=== PATIENT | female | born 1965 | race Caucasian/White ===

== ENCOUNTER 2020-06-19 11:28 | Outpatient (REF) | payer OTHER, SELFPAY ==
[2020-06-19 14:11] LABS: Glucose Urine UA NEG (NEG); Leukocyte Esterase Urine NEG (NEG); Nitrite Urine NEG (NEG); Urine Blood 1+ (NEG); Urine Ketones NEG (NEG); Urine Protein NEG (NEG-TRACE)
[2020-06-19 14:15] LABS: Appearance Urine CLEAR; Color Urine YELLOW
[2020-06-19 14:26] LABS: WBC Urine 0 /HPF (0-4)
== END 2020-06-19 11:29 | disposition home or self-care (01) ==
LOC: HO.WFDLDS 11:28
PROVIDERS: PCP Internal Medicine; Visit Provider Obstetrics & Gynecology Gynecology
DX: R31.29 Other microscopic hematuria (principal)
CPT/HCPCS: 81001; 87086

== ENCOUNTER 2022-02-10 08:01 | Outpatient (REF) | payer OTHER, SELFPAY ==
[2022-02-10 11:19] LABS: MANUAL DIFF FLAG NO
[2022-02-10 11:31] LABS: Basophils Percent Auto 0.3 % (0-2); Eosinophils Absolute Auto 0.1 X10*3/uL (0.0-0.4); Eosinophils Percent Auto 2.1 % (0-4); Hematocrit 39.4 % (37.0-47.0); Hemoglobin 12.9 g/dl (12.0-16.0); Imm Gran Abs Auto 0.02 X10*3/uL (0.00-0.03); Imm Gran Pct Auto 0.3 % (0.0-0.4); Lymphocytes Absolute Auto 1.7 X10*3/uL (1.2-4.9); Lymphocytes Percent Auto 27.4 % (20-40); Mean Corpuscular HGB Conc 32.7 g/dl (31.0-35.0); Mean Corpuscular Hemoglobin 32.7 pg (27.0-33.0); Mean Corpuscular Volume 99.7 fL (80.0-98.0); Mean Platelet Volume 13.7 fL (9.4-12.3); Monocytes Absolute Auto 0.4 X10*3/uL (0.1-1.2); Monocytes Percent Auto 6.4 % (2-11); Neutrophils Absolute Auto 3.8 x10*3/uL (2.0-8.3); Neutrophils Percent Auto 63.5 % (45-73); Platelet Count 219 X10*3/uL (160-400); Red Blood Count 3.95 X10*6/uL (4.20-5.50); Red Cell Distribution Width 12.2 % (11.0-16.0); White Blood Count 6.1 X10*3/uL (4.8-10.8)
[2022-02-10 11:58] LABS: Alanine Aminotransferase 15 U/L (0-31); Albumin Level 4.6 g/dL (3.5-5.0); Alkaline Phosphatase 82 U/L (39-117); Anion Gap 18 (12-20); Aspartate Amino Transferase 16 U/L (5-31); Bilirubin Total 0.7 mg/dL (0.0-1.0); Blood Urea Nitrogen 18 mg/dL (9-16); Carbon Dioxide 24 mmol/L (22-29); Chloride 107 mmol/L (96-108); Cholesterol 258 mg/dL; Estimated Glomerular Filt Rate 58; Glucose Fasting 101 mg/dL (60-99); HDL Cholesterol 73 mg/dL; LDL Cholesterol Calculated 169 mg/dl; Potassium 5.6 mmol/L (3.3-5.1); Sodium 143 mmol/L (135-145); Total Protein 7.4 g/dL (6.5-8.0); Triglycerides 84 mg/dL
[2022-02-10 12:19] LABS: TSH reflex Free T4 2.03 uIU/mL (0.32-4.0); Vitamin D 25-OH Total 66.9 ng/mL (>30)
== END 2022-02-10 08:02 | disposition home or self-care (01) ==
LOC: HO.HMGCLDS 08:01
PROVIDERS: PCP Internal Medicine; Visit Provider Internal Medicine
DX: Z00.00 Encounter for general adult medical examination without abnormal findings (principal); E78.5 Hyperlipidemia, unspecified; E03.9 Hypothyroidism, unspecified
CPT/HCPCS: 36415; 80053; 80061; 82306; 84443; 85025

== ENCOUNTER 2022-02-12 10:21 | Outpatient (REF) | payer OTHER, SELFPAY ==
[2022-02-12 15:32] LABS: Anion Gap 20 (12-20); Blood Urea Nitrogen 15 mg/dL (9-16); Calcium 10.2 mg/dL (8.4-10.2); Carbon Dioxide 24 mmol/L (22-29); Chloride 109 mmol/L (96-108); Estimated Glomerular Filt Rate 54; Glucose Random 107 mg/dL (60-115); Potassium 6.5 mmol/L (3.3-5.1); Sodium 146 mmol/L (135-145)
== END 2022-02-12 10:22 | disposition home or self-care (01) ==
LOC: HO.HMGCLDS 10:21
PROVIDERS: PCP Internal Medicine; Visit Provider Internal Medicine
DX: E78.5 Hyperlipidemia, unspecified (principal)
CPT/HCPCS: 36415; 80048

== ENCOUNTER 2023-02-13 10:20 | Outpatient (AMB) | payer OTHER, SELFPAY ==
[2023-02-13 10:23] VITALS: BP 106/72; PULSE 92; O2SAT 99; BMI 30.3
--- NOTE | 2023-02-13 10:23 | MHC.PC.OV ---
Vital Signs 02/13/23 10:23 Height 4 ft 8 in Weight 135 lb BMI 30.3 BP 106/72 Blood Pressure Location Rt brachial Position Sitting Pulse 92 Pulse Source Pulse Oximeter Pulse Oximetry (%) 99 Oxygen Delivery Method Room Air Intake Visit Reasons: annual PE Intake Note: Pt is here today for PE. Allergies nitrofurantoin Allergy (Unknown, Verified 02/13/23 10:25) hives Medication List - Last Reconciled 02/13/23 by Trisha Dumont MD [bio-identical hormones Estrogen, Progesterone, Testosterone, DHEA cream] cholecalciferol (vitamin D3) 125 mcg PO DAILY levothyroxine 50 mcg PO DAILY linaclotide (Linzess) 200 mcg PO DAILY magnesium PO [osteoselect 4 capsules daily] sodium polystyrene sulf-sorbtl 15-20 gram/60 mL 60 mL PO DAILY vitamin B complex 1 cap PO DAILY vitamin K2 160 mcg PO DAILY Tobacco use date assessed: 02/13/23 Dental Screening Dental Screen Date: 02/13/23 Did you have a dental visit in the last 12 months?: Yes Did you have a dental problem in the last 6 months where you did not have access to dental care?: No Was dental information given to patient?: Patient has dentist HPI annual PE HPI Details Pt presents for PE. Pt had L knee ACL surgery by Dr. Mckoy in October and recovered well. [facility] Medical History (Updated 02/13/23 @ 11:04 by Trisha Dumont MD) MANI positive Annual physical exam Hyperlipidemia Hypothyroid IBS (irritable bowel syndrome) Microscopic hematuria Vertigo Surgical History (Updated 02/13/23 @ 11:04 by Trisha Dumont MD) H/O colonoscopy Family History Father Diabetes Mother Lung cancer Social History Housing: House Alcohol intake: current Alcohol intake frequency: holidays/special occasions only Patient Tobacco Use Status: Never used Tobacco Current occupational status: employed Cognitive needs: No Hearing needs: No Vision needs: Yes Questionnaire PHQ-9 Over the last 2 weeks, how often have you been bothered by any of the following problems? 1. Little interest or pleasure in doing things: not at all 2. Feeling down, depressed, or hopeless: not at all 3. Trouble falling or staying asleep, or sleeping too much: not at all 4. Feeling tired or having little energy: not at all 5. Poor appetite or overeating: not at all 6. Feeling bad about yourself - or that you are a failure or have let yourself or your family down: not at all 7. Trouble concentrating on things, such as reading the newspaper or watching television: not at all 8. Moving or speaking so slowly that other people could have noticed. Or the opposite - being so fidgety or restless that you have been moving around a lot more than usual: not at all 9. Thoughts that you would be better off or of hurting yourself in some way: not at all Total score: 0 Depression Screening Interpretation: Negative Source: Developed by Drs. Sha Barrera, Gracie Quarles, Marcus Kang and colleagues, with an educational carola from [employer]. Thrive Questionnaire Date Thrive assessed: 02/13/23 I am a: Patient What is your living situation today?: I have a steady place to live Within the past 12 months, did the food you bought not last and you didn't have the money to get more?: Never true Within the past 12 months, did you worry whether your food would run out before you got money to buy more?: Never true Do you have trouble paying for medicines?: No Do you have trouble getting transportation to medical appointments?: No Do you have trouble paying your heating and electricity bill?: No Do you have trouble taking care of your child, family member or friend?: No Do you have trouble with day-to-day activities such as bathing, preparing meals, shopping, managing finances, etc.?: No Are you currently unemployed and looking for a job?: No Are you interested in more education?: No Please select the resources that you would like help with: None Currently or been in a relationship where the following occur: no concerns reported AUDIT C Alcohol Use Questionnaire (AUDIT-C) 1. How often do you have a drink containing alcohol?: Never 3. How often do you have six or more drinks on one occasion?: Never Total Score: 0 WALLACE-7 AMB Questionnaire WALLACE-7 Date WALLACE - 7 assessed: 02/13/23 Feeling nervous, anxious, or on edge: 0 = Not at all Not being able to stop or control worryin = Not at all Worrying too much about different things: 0 = Not at all Trouble relaxin = Not at all Being so restless that it is hard to sit still: 0 = Not at all Becoming easily annoyed or irritable: 0 = Not at all Feeling afraid as if something awful might happen: 0 = Not at all Total WALLACE-7 score (0-4 normal; 5-9 mild; 10-14 moderate; 15-21 severe): 0 Source: Developed by Drs. Sha Barrera, Gracie Quarles, Marcus Kang and colleagues, with an educational carola from [employer]. Review of Systems Const All systems reviewed & are unremarkable except as noted in HPI and below Reports no additional complaints Eyes Reports no additional complaints ENT Reports no additional complaints Card Reports no additional complaints Resp Reports no additional complaints GI Reports no additional complaints Reports no additional complaints Physical exam (Primary Care) Vital Signs: Last Vital Signs Pulse 92 02/13/23 10:23 BP 106/72 02/13/23 10:23 Pulse Ox 99 02/13/23 10:23 Oxygen Delivery Method Room Air 02/13/23 10:23 BMI result Body Mass Index 30.3 Tobacco/Smoking Status: Tobacco use Status Tobacco use date assessed 02/13/23 02/13/23 10:34 Patient Tobacco Use Status Never used Tobacco 02/13/23 10:34 PHQ-9: PHQ-9 Score PHQ-9: Total score 0 02/13/23 10:44 Depression Screening Interpretation: Negative Thrive Assessment: Date of Thrive Assessment Date Thrive assessed 02/13/23 02/13/23 10:44 Currently or been in a relationship where the following occur: no concerns reported Const General: no acute distress HENMT Head: Yes normal to inspection Ears: hearing grossly normal bilaterally General nose exam: Normal external nose present Face and sinus: Yes normal facial exam Mouth: Normal oral and palatal mucosa present Throat: Yes posterior oropharynx normal Eyes General: appearance normal, both eyes and all related structures Neck Neck: Yes supple Resp Effort & Inspection: normal respiratory effort Auscultation: clear to auscultation bilaterally Cardio Rhythm: regular rhythm Heart sounds: S1 normal heart sound present and S2 normal heart sound present GI Inspection: Yes normal to inspection Palpation (GI): Soft to palpation Percussion: Yes normal to percussion Auscultation: normal bowel sounds Assessment and Plan Assessment & Plan (1) H/O colonoscopy: Comment: 2016 , Dr. Talbert, q 3yrs, 10/2021, q 5 years Code(s): Z98.890 - Other specified postprocedural states (2) Osteoporosis: Comment: DEXA 07/13 BY TOOL POLISHING MACHINE OPERATOR, started on bioidentical hormones by interative medicine [facility] 07/13 Code(s): M81.0 - Age-related osteoporosis without current pathological fracture (3) Annual physical exam: Code(s): Z00.00 - Encounter for general adult medical examination without abnormal findings Plan: Well-balanced diet regular physical activity discussed with the patient (4) Hyperlipidemia: Comment: refused statin not feeling well on it Code(s): E78.5 - Hyperlipidemia, unspecified Plan: Continue low-cholesterol diet (5) Hypothyroid: Code(s): E03.9 - Hypothyroidism, unspecified Plan: Continue levothyroxine, return in 1 year with a fasting labs before Orders: Orders Comprehensive [place]. Panel Fast 365 Days E03.9 - Hypothyroidism, unspecified, E78.5 - Hyperlipidemia, unspecified, Z00.00 - Encounter for general adult medical examination without abnormal findings Lipid Panel 365 Days E03.9 - Hypothyroidism, unspecified, E78.5 - Hyperlipidemia, unspecified, Z00.00 - Encounter for general adult medical examination without abnormal findings TSH reflex Free T4 365 Days E03.9 - Hypothyroidism, unspecified, E78.5 - Hyperlipidemia, unspecified, Z00.00 - Encounter for general adult medical examination without abnormal findings Vitamin D 25-OH Total 365 Days E03.9 - Hypothyroidism, unspecified, E78.5 - Hyperlipidemia, unspecified, Z00.00 - Encounter for general adult medical examination without abnormal findings Complete Blood Count Auto Diff 365 Days E03.9 - Hypothyroidism, unspecified, E78.5 - Hyperlipidemia, unspecified, Z00.00 - Encounter for general adult medical examination without abnormal findings Coding Level of Care Code Est Pt Prev Care 40-64y(57935) Diagnoses H/O colonoscopy Z98.890 Osteoporosis M81.0 Annual physical exam Z00.00 Hyperlipidemia E78.5 Hypothyroid E03.9
== END 2023-02-13 11:18 | disposition home or self-care (01) ==
PROVIDERS: Visit Provider Internal Medicine
DX: Z00.00 Encounter for general adult medical examination without abnormal findings (principal); Z98.890 Other specified postprocedural states; E03.9 Hypothyroidism, unspecified; M81.0 Age-related osteoporosis without current pathological fracture; E78.5 Hyperlipidemia, unspecified
CPT/HCPCS: 99396

== ENCOUNTER 2023-09-30 15:41 | Outpatient (AMB) | payer OTHER, SELFPAY ==
[2023-09-30 15:42] VITALS: BP 136/84; PULSE 82; O2SAT 99; BMI 30.5
--- NOTE | 2023-09-30 15:42 | HO.NEPHOV ---
HPI HPI Comments History of Present Illness Details Middle-aged woman with a history of microscopic hematuria since childhood. She is undergone extensive workup urologically including cystoscopies and CT scans. No other course of the time renal function has been stable she has no significant proteinuria. 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 This spontaneously resolved. This recurred again in April 2020. She has had no further issues. She is here for routine follow-up. [facility]LY [facility] Medical History (Updated 09/30/23 @ 15:47 by Will Simeon MD) Annual physical exam Vertigo Microscopic hematuria MANI positive Hypothyroid Hyperlipidemia IBS (irritable bowel syndrome) Surgical History H/O colonoscopy Family History Father Diabetes Mother Lung cancer Social History Housing: House Alcohol intake: current Alcohol intake frequency: holidays/special occasions only Patient Tobacco Use Status: Never used Tobacco Current occupational status: employed Cognitive needs: No Hearing needs: No Vision needs: Yes Vital Signs 09/30/23 15:42 Height 4 ft 8 in Weight 136 lb BMI 30.5 BP 136/84 Blood Pressure Location Lt brachial Position Sitting Pulse 82 Pulse Source Pulse Oximeter Pulse Oximetry (%) 99 Oxygen Delivery Method Room Air Physical Exam Vital Signs: Last Vital Signs Pulse 82 09/30/23 15:42 BP 136/84 09/30/23 15:42 Pulse Ox 99 09/30/23 15:42 Oxygen Delivery Method Room Air 09/30/23 15:42 BMI result Body Mass Index 30.5 Const General: comfortable Nutritional Appearance: well nourished Orientation/consciousness: patient oriented x3 HEENT Head: No normal to inspection Mouth: moist mucous membranes Neck Neck: Yes supple and Yes no JVD Resp Auscultation: clear to auscultation bilaterally, no rales and rub present Cardio Jugular venous distension: no JVD Palpation: no palpable S3 and no palpable S4 Heart sounds: no rubs GI Palpation (GI): Soft to palpation and nontender Percussion: No Fluid wave present General: Yes no CVA tenderness Back/Spine/Pelvis Back: no CVA tenderness Skin General skin exam: no rashes or lesions noted Neuro General: patient oriented x3 Extrem General: Yes no pedal edema and No clubbing Assessment & Plan Assessment & Plan (1) Microscopic hematuria: Comment: CT of the abdomen and pelvis and cystoscopy negative August 2020 Code(s): R31.29 - Other microscopic hematuria Plan: Persistent microscopic hematuria with negative urological workup. Given the history of leukocytoclastic vasculitis I will complete more serological workup. Based on this she may require a kidney biopsy. I have discussed this with her. Raymond Tucker has mild CKD. Overall renal function stable however she has had episodes of hyperkalemia which remains unexplained. I will check plasma aldosterone and plasma renin activity. She is should stay on low-sodium diet she will follow up potassium levels. Orders: Orders Creatinine Urine Today N05.9 - Unspecified nephritic syndrome with unspecified morphologic changes, R31.29 - Other microscopic hematuria Total Protein Urine Random Today R31.29 - Other microscopic hematuria UA and rflx microscopic Today R31.29 - Other microscopic hematuria Anti DNA DS Antibody Today R31.29 - Other microscopic hematuria Neutrophil Cytoplasma Ab Today R31.29 - Other microscopic hematuria Proteinase 3 PR3 Antibodies Today R31.29 - Other microscopic hematuria Anti Glomerular Basement Memb Today R31.29 - Other microscopic hematuria Complement C4 Today R31.29 - Other microscopic hematuria Renin Today E87.5 - Hyperkalemia Parathyroid Hormone Intact Today R31.29 - Other microscopic hematuria Myeloperoxidase Antibody Today R31.29 - Other microscopic hematuria Complement C3 Today R31.29 - Other microscopic hematuria Protein Electrophoresis, Serum Today R31.29 - Other microscopic hematuria Aldosterone Today E87.5 - Hyperkalemia Coding Level of Care Code Est Pt Level 4 (91783) Diagnoses Microscopic hematuria R31.29 Results Reviewed Results Reviewed: 09/24/2023. Potassium 5.1 creatinine 1.06 Nephrology Results: Hgb 12.9 g/dl (12.0-16.0) 02/10/22 WBC 6.1 X10*3/uL (4.8-10.8) 02/10/22 Plt Count 219 X10*3/uL (160-400) 02/10/22 Sodium 146 mmol/L (135-145) H 02/12/22 Potassium 6.5 mmol/L (3.3-5.1) H* 02/12/22 Chloride 109 mmol/L (96-108) H 02/12/22 Carbon Dioxide 24 mmol/L (22-29) 02/12/22 BUN 15 mg/dL (9-16) 02/12/22 Creatinine 1.05 mg/dL (0.5-1.4) 02/12/22 Calcium 10.2 mg/dL (8.4-10.2) 02/12/22 Urine Protein NEG MG/DL (NEG-TRACE) 06/19/20
== END 2023-09-30 16:18 | disposition home or self-care (01) ==
PROVIDERS: PCP Internal Medicine; Visit Provider Internal Medicine Hypertension Specialist
DX: R31.29 Other microscopic hematuria (principal)
CPT/HCPCS: 99214

== ENCOUNTER → 2023-09-30 15:41 | Outpatient (BNVA) | payer OTHER, SELFPAY | PROVIDERS: PCP Internal Medicine; Visit Provider Internal Medicine Hypertension Specialist ==

== ENCOUNTER 2023-09-30 15:52 | Outpatient (REF) | payer OTHER, SELFPAY ==
[2023-09-30 16:59] LABS: Appearance Urine Clear; Color Urine Yellow; Glucose Urine UA Negative (Negative); Leukocyte Esterase Urine Trace (Negative); Nitrite Urine Negative (Negative); PH 6.5 (5.0-9.0); Specific Gravity - Urine <= 1.005 (1.005-1.025); UMIC TRIGGER UA YES; Urine Blood Negative (Negative); Urine Ketones Negative (Negative); Urine Protein Negative (Neg-Trace)
[2023-09-30 17:04] LABS: Bacteria Urine None Seen (None Seen); Hyaline Casts Urine 0-2 /LPF (0-2); RBC Urine 0-2 /HPF (0-2); Squamous Epithelial Cell Urine 0-2 /HPF (0-2); WBC Urine 0-5 /HPF (0-5)
[2023-09-30 17:45] LABS: Creatinine Urine 26.04 mg/dL; Total Protein Urine Random < 7 mg/dL (<12)
== END 2023-09-30 15:53 | disposition home or self-care (01) ==
LOC: HO.HKASLDS 15:52
PROVIDERS: Visit Provider Internal Medicine Hypertension Specialist
DX: R31.29 Other microscopic hematuria (principal); N05.9 Unspecified nephritic syndrome with unspecified morphologic changes
CPT/HCPCS: 81001; 82570; 84156

== ENCOUNTER 2023-10-01 15:39 | Outpatient (REF) | payer OTHER, SELFPAY ==
[2023-10-01 17:34] LABS: Parathyroid Hormone Intact 71.1 pg/mL (8.7-77.1)
[2023-10-02 21:05] LABS: Anti DNA DS Antibody <1 IU/mL; Anti Glomerular Basement Memb <1.0 AI; Myeloperoxidase Antibody <1.0 AI; Proteinase 3 PR3 Antibodies <1.0 AI
[2023-10-02 22:03] LABS: Prot Elec - Albumin 4.7 g/dL (3.8-4.8); Prot Elec - Alpha1 0.3 g/dL (0.2-0.3); Prot Elec - Alpha2 0.7 g/dL (0.5-0.9); Prot Elec - Beta 1 0.4 g/dL (0.4-0.6); Prot Elec - Beta 2 0.4 g/dL (0.2-0.5); Prot Elec - Gamma 0.8 g/dL (0.8-1.7); Prot Elec - Total Protein 7.3 g/dL (6.1-8.1)
[2023-10-06 06:44] LABS: Neutrophil Cyto Ab Screen NEGATIVE (NEGATIVE)
[2023-10-08 18:18] LABS: Renin 0.95 ng/mL/h (0.25-5.82)
== END 2023-10-01 15:40 | disposition home or self-care (01) ==
LOC: HO.HKASLDS 15:39
PROVIDERS: Visit Provider Internal Medicine Hypertension Specialist
DX: R31.29 Other microscopic hematuria (principal); E87.5 Hyperkalemia
CPT/HCPCS: 36415; 82088; 83520; 83970; 84165; 84244; 86021; 86036; 86160; 86225

== ENCOUNTER 2023-10-03 09:04 | Outpatient (REF) | payer OTHER, SELFPAY ==
[2023-10-03 09:54] LABS: Appearance Urine Clear; Color Urine Yellow; Glucose Urine UA Negative (Negative); Leukocyte Esterase Urine Negative (Negative); Nitrite Urine Negative (Negative); Specific Gravity - Urine <= 1.005 (1.005-1.025); Urine Blood Negative (Negative); Urine Ketones Negative (Negative); Urine Protein Negative (Neg-Trace)
[2023-10-05 21:47] LABS: Complement C3 150 mg/dL (83-193)
== END 2023-10-03 09:05 | disposition home or self-care (01) ==
LOC: HO.LAB 09:04
PROVIDERS: PCP Internal Medicine; Visit Provider Internal Medicine Hypertension Specialist
DX: R31.29 Other microscopic hematuria (principal)
CPT/HCPCS: 36415; 81003; 86160

== ENCOUNTER 2023-10-19 09:31 | Outpatient (AMB) | payer OTHER, SELFPAY ==
[2023-10-19 09:32] VITALS: BP 122/70; PULSE 91; O2SAT 100; BMI 30.3
--- NOTE | 2023-10-19 09:32 | A.OFFPC_ITS ---
Vital Signs 10/19/23 09:32 Height 4 ft 8 in Weight 135 lb BMI 30.3 BP 122/70 Blood Pressure Location Rt brachial Position Sitting Pulse 91 Pulse Source Pulse Oximeter Pulse Oximetry (%) 100 Oxygen Delivery Method Room Air Intake Visit Reasons: Osteoporosis Allergies nitrofurantoin Allergy (Unknown, Verified 10/19/23 09:32) hives Tobacco use date assessed: 10/19/23 Dental Screening Dental Screen Date: 10/19/23 Did you have a dental visit in the last 12 months?: Yes Did you have a dental problem in the last 6 months where you did not have access to dental care?: No Was dental information given to patient?: Patient has dentist HPI Osteoporosis HPI Details Patient presents for the follow-up of osteoporosis. She saw food manager who recommended patient to start abaloparatide injections but patient is concerned about long-term effects of the medication. Workup for secondary osteoporosis was negative. She has been on bio identical hormone replacement for the last year and exercises 5 times a week. There is a family history of osteoporosis but no osteoporotic fracture in her mother who at 83 and her sister. [facility] Medical History (Updated 10/19/23 @ 13:14 by Trisha Dumont MD) Annual physical exam Vertigo Microscopic hematuria MANI positive Hypothyroid Hyperlipidemia IBS (irritable bowel syndrome) Surgical History H/O colonoscopy Family History Father Diabetes Mother Lung cancer Social History Housing: House Alcohol intake: current Alcohol intake frequency: holidays/special occasions only Patient Tobacco Use Status: Never used Tobacco e-Cigarette/Vaping Use: Never Used Current occupational status: employed Cognitive needs: No Hearing needs: No Vision needs: No Questionnaire PHQ-9 Over the last 2 weeks, how often have you been bothered by any of the following problems? 1. Little interest or pleasure in doing things: not at all 2. Feeling down, depressed, or hopeless: not at all 3. Trouble falling or staying asleep, or sleeping too much: not at all 4. Feeling tired or having little energy: not at all 5. Poor appetite or overeating: not at all 6. Feeling bad about yourself - or that you are a failure or have let yourself or your family down: not at all 7. Trouble concentrating on things, such as reading the newspaper or watching television: not at all 8. Moving or speaking so slowly that other people could have noticed. Or the opposite - being so fidgety or restless that you have been moving around a lot more than usual: not at all 9. Thoughts that you would be better off or of hurting yourself in some way: not at all Total score: 0 Depression Screening Interpretation: Negative Depression Screening Done: Yes 58075 - PHQ-9 Billing: Yes Source: Developed by Drs. Sha Barrera, Gracie Quarles, Marcus Kang and colleagues, with an educational carola from [employer]. Thrive Questionnaire Date Thrive assessed: 10/19/23 I am a: Patient What is your living situation today?: I have a steady place to live Within the past 12 months, did the food you bought not last and you didn't have the money to get more?: Never true Within the past 12 months, did you worry whether your food would run out before you got money to buy more?: Never true Do you have trouble paying for medicines?: No Do you have trouble getting transportation to medical appointments?: No Do you have trouble paying your heating and electricity bill?: No Do you have trouble taking care of your child, family member or friend?: No Do you have trouble with day-to-day activities such as bathing, preparing meals, shopping, managing finances, etc.?: No Are you currently unemployed and looking for a job?: No Are you interested in more education?: Yes Please select the resources that you would like help with: Education Currently or been in a relationship where the following occur: no concerns reported THRIVE Score: 0 AUDIT C Alcohol Use Questionnaire (AUDIT-C) 1. How often do you have a drink containing alcohol?: Never 3. How often do you have six or more drinks on one occasion?: Never Total Score: 0 Score Reviewed/Action Taken: Yes WALLACE-7 AMB Questionnaire WALLACE-7 Date WALLACE - 7 assessed: 10/19/23 Feeling nervous, anxious, or on edge: 1 = Several days Not being able to stop or control worryin = Not at all Worrying too much about different things: 0 = Not at all Trouble relaxin = Not at all Being so restless that it is hard to sit still: 0 = Not at all Becoming easily annoyed or irritable: 0 = Not at all Feeling afraid as if something awful might happen: 0 = Not at all Total WALLACE-7 score (0-4 normal; 5-9 mild; 10-14 moderate; 15-21 severe): 1 Source: Developed by Drs. Sha Barrera, Gracie Quarles, Marcus Kang and colleagues, with an educational carola from [employer]. WALLACE-7 Assessment Billing WALLACE-7 Assessment Tool: WALLACE-7 Assessment 56829 Review of Systems Const All systems reviewed & are unremarkable except as noted in HPI and below Reports no additional complaints Eyes Reports no additional complaints ENT Reports no additional complaints Card Reports no additional complaints Resp Reports no additional complaints GI Reports no additional complaints Reports no additional complaints Physical exam (Primary Care) Vital Signs: Last Vital Signs Pulse 91 10/19/23 09:32 BP 122/70 10/19/23 09:32 Pulse Ox 100 10/19/23 09:32 Oxygen Delivery Method Room Air 10/19/23 09:32 BMI result Body Mass Index 30.3 Tobacco/Smoking Status: Tobacco use Status Tobacco use date assessed 10/19/23 10/19/23 09:36 Patient Tobacco Use Status Never used Tobacco 10/19/23 09:36 e-Cigarette/Vaping Use Never Used 10/19/23 09:36 PHQ-9: PHQ-9 Score PHQ-9: Total score 0 10/19/23 10:32 Depression Screening Interpretation: Negative Thrive Assessment: Date of Thrive Assessment Date Thrive assessed 10/19/23 10/19/23 10:32 Currently or been in a relationship where the following occur: no concerns reported Const General: no acute distress HENMT Head: Yes normal to inspection General nose exam: Normal external nose present Eyes General: appearance normal, both eyes and all related structures Resp Effort & Inspection: normal respiratory effort Auscultation: clear to auscultation bilaterally Cardio Rhythm: regular rhythm Heart sounds: S1 normal heart sound present and S2 normal heart sound present GI Inspection: Yes normal to inspection Palpation (GI): Soft to palpation Percussion: Yes normal to percussion Auscultation: normal bowel sounds Assessment and Plan Assessment & Plan (1) Osteoporosis: Comment: DEXA 07/13 BY TELEMETRY TECH, started on bioidentical hormones by INTEGRATIVE medicine DIRECTOR OF ESTATE [facility] CT 07/13, DEXA 07/15 T score -3.5 L spine decrease 9.8% from 2021. Code(s): M81.0 - Age-related osteoporosis without current pathological fracture Plan: Pros and cons of osteoporosis treatment discussed with the patient. Patient was made aware that 1st choice of treatment will be antiresorptive agent such Fosamax. She is looking for a 2nd opinion endocrinology. Patient will continue regular exercise and vitamin-D. Coding Level of Care Code Est Pt Level 3 (84393) Diagnoses Osteoporosis M81.0 Additional Codes WALLACE-7 Assessment Billing - WALLACE-7 Assessment Tool: WALLACE-7 Assessment 11594 ([id number])
== END 2023-10-19 10:47 | disposition home or self-care (01) ==
PROVIDERS: PCP Internal Medicine; Visit Provider Internal Medicine
DX: M81.0 Age-related osteoporosis without current pathological fracture (principal)
CPT/HCPCS: 99213

== ENCOUNTER 2023-10-21 11:38 | Outpatient (AMB) | payer OTHER, SELFPAY ==
[2023-10-21 11:40] VITALS: BP 128/76; PULSE 88; O2SAT 99; BMI 29.8
--- NOTE | 2023-10-21 11:40 | HO.NEPHOV ---
Vital Signs 10/21/23 11:40 Height 4 ft 8 in Weight 133 lb BMI 29.8 BP 128/76 Blood Pressure Location Lt brachial Position Sitting Pulse 88 Pulse Source Pulse Oximeter Pulse Oximetry (%) 99 Oxygen Delivery Method Room Air Intake Visit Reasons: 4 week F/U/ Confirmed Production Sound Mixer Required: No Accompanied by: Self / Same As Patient Allergies nitrofurantoin Allergy (Unknown, Verified 10/21/23 11:42) hives HPI Comments Details: Middle-aged woman with a history of microscopic hematuria since childhood. She is undergone extensive workup urologically including cystoscopies and CT scans. No other course of the time renal function has been stable she has no significant proteinuria. 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 This spontaneously resolved. This recurred again in April 2020. She has had no further issues. She is here for routine follow-up. Being evaluated for osteoporosis [facility] Medical History (Updated 10/19/23 @ 13:14 by Trisha Dumont MD) Annual physical exam Vertigo Microscopic hematuria MANI positive Hypothyroid Hyperlipidemia IBS (irritable bowel syndrome) Surgical History (Updated 10/21/23 @ 11:43 by Maine Prado) H/O anterior cruciate ligament surgery (~10/2022) H/O colonoscopy Family History Father Diabetes Mother Lung cancer Social History Housing: House Alcohol intake: current Alcohol intake frequency: holidays/special occasions only Patient Tobacco Use Status: Never used Tobacco e-Cigarette/Vaping Use: Never Used Current occupational status: employed Cognitive needs: No Hearing needs: No Vision needs: No Physical Exam Vital Signs: Last Vital Signs Pulse 88 10/21/23 11:40 BP 128/76 10/21/23 11:40 Pulse Ox 99 10/21/23 11:40 Oxygen Delivery Method Room Air 10/21/23 11:40 BMI result Body Mass Index 29.8 Const General: comfortable Nutritional Appearance: well nourished Orientation/consciousness: patient oriented x3 HEENT Head: No normal to inspection Mouth: moist mucous membranes Neck Neck: Yes supple and Yes no JVD Resp Auscultation: clear to auscultation bilaterally, no rales and rub present Cardio Jugular venous distension: no JVD Palpation: no palpable S3 and no palpable S4 Heart sounds: no rubs GI Palpation (GI): Soft to palpation and nontender Percussion: No Fluid wave present General: Yes no CVA tenderness Back/Spine/Pelvis Back: no CVA tenderness Skin General skin exam: no rashes or lesions noted Neuro General: patient oriented x3 Extrem General: Yes no pedal edema and No clubbing Results Reviewed Nephrology Results: Hgb 12.9 g/dl (12.0-16.0) 02/10/22 WBC 6.1 X10*3/uL (4.8-10.8) 02/10/22 Plt Count 219 X10*3/uL (160-400) 02/10/22 Sodium 146 mmol/L (135-145) H 02/12/22 Potassium 6.5 mmol/L (3.3-5.1) H* 02/12/22 Chloride 109 mmol/L (96-108) H 02/12/22 Carbon Dioxide 24 mmol/L (22-29) 02/12/22 BUN 15 mg/dL (9-16) 02/12/22 Creatinine 1.05 mg/dL (0.5-1.4) 02/12/22 Calcium 10.2 mg/dL (8.4-10.2) 02/12/22 PTH Intact 71.1 pg/mL (8.7-77.1) 10/01/23 Urine Protein Negative mg/dL (Neg-Trace) 10/03/23 Urine Creatinine 26.04 mg/dL 09/30/23 Assessment & Plan Assessment & Plan (1) Hyperkalemia: Code(s): E87.5 - Hyperkalemia Category: Medical (2) Microscopic hematuria: Comment: CT of the abdomen and pelvis and cystoscopy negative August 2020 Code(s): R31.29 - Other microscopic hematuria Category: Medical Plan: h/o microscopic hematuria with negative urological workup. REpeat UA did not revela any blood/RBCs or protein Given the history of leukocytoclastic vasculitis serological workup was completed .No significant findings No indication for kidney biopsy. Hyperkalemia in a setting of normal creatinine PA and PRA normal Possible pseudohyperkalemia Ordered blood samples to be drawn without tourniquet and avoid narrow gauge needles/butterfly. To be done directly at the hospital lab and not a satellite draw station Plan Caitlin has mild CKD. Overall renal function stable however she has had episodes of hyperkalemia which remains unexplained. I will check plasma aldosterone and plasma renin activity. She is should stay on low-sodium diet she will follow up potassium levels. Orders: Orders Basic Metabolic Panel Today E87.5 - Hyperkalemia Coding Level of Care Code Est Pt Level 4 (28883) Diagnoses Hyperkalemia E87.5 Microscopic hematuria R31.29
== END 2023-10-21 12:07 | disposition home or self-care (01) ==
PROVIDERS: PCP Internal Medicine; Visit Provider Internal Medicine Hypertension Specialist
DX: E87.5 Hyperkalemia (principal); R31.29 Other microscopic hematuria
CPT/HCPCS: 99214

== ENCOUNTER → 2023-10-21 11:38 | Outpatient (BNVA) | payer OTHER, SELFPAY | PROVIDERS: PCP Internal Medicine; Visit Provider Internal Medicine Hypertension Specialist ==

== ENCOUNTER 2023-10-24 07:37 | Outpatient (REF) | payer OTHER, SELFPAY ==
[2023-10-24 09:38] LABS: Anion Gap 18 (12-20); Blood Urea Nitrogen 13 mg/dL (9-16); Calcium 9.9 mg/dL (8.4-10.2); Carbon Dioxide 23 mmol/L (22-29); Chloride 105 mmol/L (96-108); Estimated Glomerular Filt Rate > 60; Glucose Random 96 mg/dL (60-115); Potassium 4.3 mmol/L (3.3-5.1); Sodium 142 mmol/L (135-145)
== END 2023-10-24 07:38 | disposition home or self-care (01) ==
LOC: HO.LAB 07:37
PROVIDERS: PCP Internal Medicine; Visit Provider Internal Medicine Hypertension Specialist
DX: E87.5 Hyperkalemia (principal)
CPT/HCPCS: 36415; 80048

== ENCOUNTER 2024-01-11 09:20 | Outpatient (REF) | payer OTHER, SELFPAY ==
[2024-01-11 11:10] LABS: MANUAL DIFF FLAG NO
[2024-01-11 11:22] LABS: Basophils Percent Auto 0.5 % (0-2); Eosinophils Absolute Auto 0.1 X10*3/uL (0.0-0.4); Eosinophils Percent Auto 1.5 % (0-4); Hematocrit 39.1 % (37.0-47.0); Hemoglobin 12.7 g/dl (12.0-16.0); Imm Gran Abs Auto 0.01 X10*3/uL (0.00-0.03); Imm Gran Pct Auto 0.2 % (0.0-0.4); Lymphocytes Absolute Auto 1.9 X10*3/uL (1.2-4.9); Lymphocytes Percent Auto 31.4 % (20-40); Mean Corpuscular HGB Conc 32.5 g/dl (31.0-35.0); Mean Corpuscular Hemoglobin 32.8 pg (27.0-33.0); Mean Platelet Volume 13.7 fL (9.4-12.3); Monocytes Absolute Auto 0.4 X10*3/uL (0.1-1.2); Monocytes Percent Auto 6.9 % (2-11); Neutrophils Absolute Auto 3.5 x10*3/uL (2.0-8.3); Neutrophils Percent Auto 59.5 % (45-73); Platelet Count 205 X10*3/uL (160-400); Red Blood Count 3.87 X10*6/uL (4.20-5.50); Red Cell Distribution Width 12.3 % (11.0-16.0); White Blood Count 5.9 X10*3/uL (4.8-10.8)
[2024-01-11 11:45] LABS: Alanine Aminotransferase 29 U/L (0-31); Albumin Level 4.5 g/dL (3.5-5.0); Alkaline Phosphatase 95 U/L (39-117); Anion Gap 13 (12-20); Aspartate Amino Transferase 26 U/L (5-31); Bilirubin Total 0.3 mg/dL (0.0-1.0); Blood Urea Nitrogen 18 mg/dL (9-16); Calcium 9.5 mg/dL (8.4-10.2); Carbon Dioxide 24 mmol/L (22-29); Chloride 108 mmol/L (96-108); Cholesterol 235 mg/dL (<200); Estimated Glomerular Filt Rate > 60; Glucose Fasting 101 mg/dL (60-99); HDL Cholesterol 64 mg/dL (>40); LDL Cholesterol Calculated 150 mg/dL (<100); Potassium 4.2 mmol/L (3.3-5.1); Sodium 141 mmol/L (135-145); Total Protein 7.2 g/dL (6.5-8.0); Triglycerides 107 mg/dL (<150)
[2024-01-11 12:06] LABS: TSH reflex Free T4 1.88 uIU/mL (0.32-4.0); Vitamin D 25-OH Total > 154.2 ng/mL (>30)
== END 2024-01-11 09:21 | disposition home or self-care (01) ==
LOC: HO.WFDLDS 09:20
PROVIDERS: Visit Provider Internal Medicine
DX: Z00.00 Encounter for general adult medical examination without abnormal findings (principal); E78.5 Hyperlipidemia, unspecified; E03.9 Hypothyroidism, unspecified
CPT/HCPCS: 36415; 80053; 80061; 82306; 84443; 85025

== ENCOUNTER 2024-05-05 10:11 | Outpatient (AMB) | payer OTHER, SELFPAY ==
[2024-05-05 10:13] VITALS: BP 118/70; PULSE 78; O2SAT 98; BMI 32.1
--- NOTE | 2024-05-05 10:13 | MHC.PC.OV ---
Vital Signs 05/05/24 10:13 Height 4 ft 8 in Weight 143 lb BMI 32.1 BP 118/70 Blood Pressure Location Rt brachial Position Sitting Pulse 78 Pulse Source Pulse Oximeter Pulse Oximetry (%) 98 Oxygen Delivery Method Room Air Intake Visit Reasons: PE Intake Note: Pt is here today for PE. Allergies nitrofurantoin Allergy (Unknown, Verified 05/05/24 10:15) hives Medication List - Last Reconciled 05/05/24 by Trisha Dumont MD [bio-identical hormones Estrogen, Progesterone, Testosterone, DHEA cream] cholecalciferol (vitamin D3) 125 mcg PO DAILY levothyroxine 50 mcg PO DAILY linaclotide (Linzess) 200 mcg PO DAILY magnesium PO DAILY [osteoselect 4 capsules daily] vitamin B complex 1 cap PO DAILY Zepbound (tirzepatide (weight loss)) 2.5 mg (0.5 mL) subcut QWEEK NS Tobacco use date assessed: 05/05/24 Dental Screening Dental Screen Date: 05/05/24 Did you have a dental visit in the last 12 months?: Yes Did you have a dental problem in the last 6 months where you did not have access to dental care?: No Was dental information given to patient?: Patient has dentist HPI PE HPI Details Pt presents for PE. Pt gained 20 lbs within 2 months despite decreasing caloric intake and exercising regularly for at least 6 months. [facility] Medical History (Updated 05/05/24 @ 11:01 by Trisha Dumont MD) Annual physical exam Vertigo Microscopic hematuria MANI positive Hypothyroid Hyperlipidemia IBS (irritable bowel syndrome) Surgical History H/O anterior cruciate ligament surgery (~10/2022) H/O colonoscopy Family History Father Diabetes Mother Lung cancer Social History Housing: House Alcohol intake: current Alcohol intake frequency: holidays/special occasions only Patient Tobacco Use Status: Never used Tobacco e-Cigarette/Vaping Use: Never Used service: No Current occupational status: employed Cognitive needs: No Hearing needs: No Vision needs: No Questionnaire PHQ-9 Over the last 2 weeks, how often have you been bothered by any of the following problems? 1. Little interest or pleasure in doing things: not at all 2. Feeling down, depressed, or hopeless: not at all 3. Trouble falling or staying asleep, or sleeping too much: not at all 4. Feeling tired or having little energy: not at all 5. Poor appetite or overeating: not at all 6. Feeling bad about yourself - or that you are a failure or have let yourself or your family down: not at all 7. Trouble concentrating on things, such as reading the newspaper or watching television: not at all 8. Moving or speaking so slowly that other people could have noticed. Or the opposite - being so fidgety or restless that you have been moving around a lot more than usual: not at all 9. Thoughts that you would be better off or of hurting yourself in some way: not at all Total score: 0 Depression Screening Interpretation: Negative Depression Screening Done: Yes 69887 - PHQ-9 Billing: Yes Source: Developed by Drs. Sha Barrera, Gracie Quarles, Marcus Kang and colleagues, with an educational carola from [employer]. Thrive Questionnaire Date Thrive assessed: 05/05/24 I am a: Patient What is your living situation today?: I choose not to answer this question Within the past 12 months, did the food you bought not last and you didn't have the money to get more?: I choose not to answer this question Within the past 12 months, did you worry whether your food would run out before you got money to buy more?: I choose not to answer this question Do you have trouble paying for medicines?: I choose not to answer this question Do you have trouble getting transportation to medical appointments?: I choose not to answer this question Do you have trouble paying your heating and electricity bill?: I choose not to answer this question Do you have trouble taking care of your child, family member or friend?: I choose not to answer this question Do you have trouble with day-to-day activities such as bathing, preparing meals, shopping, managing finances, etc.?: I choose not to answer this question Are you currently unemployed and looking for a job?: I choose not to answer this question Are you interested in more education?: I choose not to answer this question Please select the resources that you would like help with: None Currently or been in a relationship where the following occur: I choose not to answer THRIVE Score: 0 AUDIT C Alcohol Use Questionnaire (AUDIT-C) 1. How often do you have a drink containing alcohol?: Never 3. How often do you have six or more drinks on one occasion?: Never Total Score: 0 WALLACE-7 AMB Questionnaire WALLACE-7 Date WALLACE - 7 assessed: 05/05/24 Feeling nervous, anxious, or on edge: 0 = Not at all Not being able to stop or control worryin = Not at all Worrying too much about different things: 0 = Not at all Trouble relaxin = Not at all Being so restless that it is hard to sit still: 0 = Not at all Becoming easily annoyed or irritable: 0 = Not at all Feeling afraid as if something awful might happen: 0 = Not at all Total WALLACE-7 score (0-4 normal; 5-9 mild; 10-14 moderate; 15-21 severe): 0 Source: Developed by Drs. Sha Barrera, Gracie Quarles, Marcus Kang and colleagues, with an educational carola from [employer]. WALLACE-7 Assessment Billing WALLACE-7 Assessment Tool: WALLACE-7 Assessment 45069 Review of Systems Const All systems reviewed & are unremarkable except as noted in HPI and below Reports no additional complaints Eyes Reports no additional complaints ENT Reports no additional complaints Card Reports no additional complaints Resp Reports no additional complaints GI Reports no additional complaints Reports no additional complaints Physical exam (Primary Care) Vital Signs: Last Vital Signs Pulse 78 05/05/24 10:13 BP 118/70 05/05/24 10:13 Pulse Ox 98 05/05/24 10:13 Oxygen Delivery Method Room Air 05/05/24 10:13 BMI result Body Mass Index 32.1 Tobacco/Smoking Status: Tobacco use Status Tobacco use date assessed 05/05/24 05/05/24 10:18 Patient Tobacco Use Status Never used Tobacco 05/05/24 10:18 e-Cigarette/Vaping Use Never Used 05/05/24 10:18 PHQ-9: PHQ-9 Score PHQ-9: Total score 0 05/05/24 10:19 Depression Screening Interpretation: Negative Thrive Assessment: Date of Thrive Assessment Date Thrive assessed 05/05/24 05/05/24 10:19 Currently or been in a relationship where the following occur: I choose not to answer Const General: no acute distress HENMT Head: Yes normal to inspection Ears: hearing grossly normal bilaterally Face and sinus: Yes normal facial exam Throat: Yes posterior oropharynx normal Eyes General: appearance normal, both eyes and all related structures Neck Neck: Yes supple Resp Effort & Inspection: normal respiratory effort Auscultation: clear to auscultation bilaterally Cardio Rhythm: regular rhythm Heart sounds: S1 normal heart sound present and S2 normal heart sound present GI Inspection: Yes normal to inspection Palpation (GI): Soft to palpation Percussion: Yes normal to percussion Auscultation: normal bowel sounds Coding Level of Care Code Est Pt Prev Care 40-64y(80060) Diagnoses H/O colonoscopy Z98.890 Osteoporosis M81.0 Annual physical exam Z00.00 Hyperlipidemia E78.5 Hypothyroid E03.9 Overweight E66.3 Vitamin D deficiency E55.9 Additional Codes WALLACE-7 Assessment Billing - WALLACE-7 Assessment Tool: WALLACE-7 Assessment 41220 ([id number]) PHQ-9 - 74049 - PHQ-9 Billing: Yes ([id number]) Assessment & Plan Assessment & Plan (1) H/O colonoscopy: Comment: 2016 , Dr. Talbert, q 3yrs, 10/2021, q 5 years Code(s): Z98.890 - Other specified postprocedural states Category: Surgical Plan: f/u with GI (2) Osteoporosis: Comment: DEXA 07/13 BY [employer], started on bioidentical hormones by [facility] 07/13, DEXA 07/15 T score -3.5 L spine decrease 9.8% from 2021. Code(s): M81.0 - Age-related osteoporosis without current pathological fracture Category: Medical Plan: Continue vitamin-D and regular exercise. Patient will see clinical nursing professor for 2nd opinion Dr. Samayoa (3) Annual physical exam: Code(s): Z00.00 - Encounter for general adult medical examination without abnormal findings Category: Medical Plan: Well-balanced diet regular exercise discussed with the patient she is up-to-date with the mammogram colonoscopy and blood bank credit clerk exam (4) Hyperlipidemia: Comment: refused statins, on low-cholesterol diet Code(s): E78.5 - Hyperlipidemia, unspecified Category: Medical Plan: Continue low-cholesterol diet (5) Hypothyroid: Code(s): E03.9 - Hypothyroidism, unspecified Category: Medical Plan: Continue levothyroxine (6) Overweight: Comment: BMI 32.1 04/2024 Code(s): E66.3 - Overweight Category: Medical Plan: PATIENT HAS NOT BEEN ABLE TO LOSE WEIGHT DESPITE DECREASING CALORIC INTAKE EXERCISING. SHE IS IN A HIGH RISK FOR COMPLICATIONS OF OVERWEIGHT INCLUDING CORONARY ARTERY DISEASE CA CVA and she will benefit from GLP 1 agonist. She will try Zepbound 2.5 mg weekly and increase the dose depending on the results and side effects. Follow-up in 6 months (7) Vitamin D deficiency: Code(s): E55.9 - Vitamin D deficiency, unspecified Category: Medical Plan: cont vit D Orders: Orders TSH reflex Free T4 6 Months E55.9 - Vitamin D deficiency, unspecified, E78.5 - Hyperlipidemia, unspecified, Z00.00 - Encounter for general adult medical examination without abnormal findings Vitamin D 25-OH Total 6 Months E55.9 - Vitamin D deficiency, unspecified, E78.5 - Hyperlipidemia, unspecified, Z00.00 - Encounter for general adult medical examination without abnormal findings Comprehensive Cody. Panel Fast 6 Months E55.9 - Vitamin D deficiency, unspecified, E78.5 - Hyperlipidemia, unspecified, Z00.00 - Encounter for general adult medical examination without abnormal findings Complete Blood Count Auto Diff 6 Months E55.9 - Vitamin D deficiency, unspecified, E78.5 - Hyperlipidemia, unspecified, Z00.00 - Encounter for general adult medical examination without abnormal findings Lipid Panel 6 Months E55.9 - Vitamin D deficiency, unspecified, E78.5 - Hyperlipidemia, unspecified, Z00.00 - Encounter for general adult medical examination without abnormal findings Medications: New Zepbound (tirzepatide (weight loss)) for 4 weeks 2.5 mg (0.5 mL) subcut QWEEK 2 mL 2RF NS Refilled levothyroxine 50 mcg PO DAILY 90 tabs 3RF
== END 2024-05-05 10:52 | disposition home or self-care (01) ==
PROVIDERS: PCP Internal Medicine; Visit Provider Internal Medicine
DX: Z98.890 Other specified postprocedural states (principal); M81.0 Age-related osteoporosis without current pathological fracture; Z00.00 Encounter for general adult medical examination without abnormal findings; E78.5 Hyperlipidemia, unspecified; E03.9 Hypothyroidism, unspecified; E66.3 Overweight; E55.9 Vitamin D deficiency, unspecified

== ENCOUNTER → 2024-05-05 10:11 | Outpatient (BNVA) | payer OTHER, SELFPAY | PROVIDERS: PCP Internal Medicine; Visit Provider Internal Medicine | DX: Z00.00 Encounter for general adult medical examination without abnormal findings (principal); M81.0 Age-related osteoporosis without current pathological fracture; E78.5 Hyperlipidemia, unspecified; E03.9 Hypothyroidism, unspecified; E55.9 Vitamin D deficiency, unspecified; E66.3 Overweight; Z68.32 Body mass index [BMI] 32.0-32.9, adult; Z79.899 Other long term (current) drug therapy | CPT/HCPCS: 96127 ==

== ENCOUNTER 2024-11-05 08:50 | Outpatient (REF) | payer OTHER, SELFPAY ==
--- OUTSIDE RECORDS SUMMARY | 2024-11-05 08:53 | XMS_ITS | Patient Health Record ---
Author Organization [facility] Address [address] [place] [address] Care Team Providers Care Deputy Harbormaster Name Role Phone Trisha Dumont MD Primary Care Provider Jodee Kirkland Unavailable [phone] Allergies No Known Allergies Results Component Value Reference Range Notes Urinalysis Reviewed date:04/29/2024 12:49:01 PM Interpretation: Performing Lab: Notes/Report: PH 5.0 PROTEIN Trace GLUCOSE Neg BLOOD Small Reason For Referral No Information Medications Medication SIG (Take, Route, Frequency, Duration) Notes Start Date End Date Status Biotin 5000 MCG 1 tablet Orally Once a day for 30 day(s) Active Levothyroxine Sodium 50 MCG 1 tablet in the morning on an empty stomach Orally Once a day 50MCG Active Vitamin D 50 MCG (1999 UT) 1 tablet Oral ly Once a day Active Magnesium Active Calcium Active Bio Identical Hormones Active Linzess 290 MCG 1 capsule at least 3 0 minutes before the first meal of the day on an empty stomach Orally Once a day for 30 day(s) Active Social History Tobacco Use: Social History Observation Description Date Details (start date - stop date) Never Smoker NA - NA Sexual History Question Answer Notes Had sex in the past 12 months (vaginal, oral, or anal)? Yes with Men only Prevention strategies discussed: Other AUDIT-C (Standard) Question Answer Notes Did you have a drink containing alcohol in the p ast year? No Points 0 Interpretation Negative Tobacco Control (Standard) Question Answer Notes Tobacco use: Nonsmoker Problems Problem Type SNOMED Code ICD Code Onset Dates Problem Status W/U Status Risk Notes Problem Menopause (880515543) Menopausal and female climacteric states (N95.1) Active confirmed Problem Postmenopausal atrophic vaginitis (68158237) Postmenopausal atrophic vaginitis (N95.2) Active confirmed Problem SI - Stress incontinence (53610985) Stress incontinence (female) (male) (N39.3) Active confirmed Problem Age-related osteoporosis (197452730) Age-related osteoporosis without current pathological fracture (M81.0) Active confirmed Problem Menopause (023576142) Menopausal and female climacteric states (N95.1) Active confirmed Vital Signs Temperature 97.7 degrees Fahrenheit 04/29/2024 Blood pressure diastolic 74 mm Hg 04/29/2024 Height 56 in 04/29/2024 Blood pressure systolic 132 mm Hg 04/29/2024 Weight 139 lbs 04/29/2024 BMI 31.16 kg/m2 04/29/2024 Encounters Encounter Location Date Provider Diagnosis [address] [address] 04/29/2024 Jodee Porter Encounter for gynecological examination (general) (routine) without abnormal findings Z01.419 ; Encounter for screening mammogram for malignant neoplasm of breast Z12.31 ; Age-related osteoporosis without current pathological fracture M81.0 and Hormone replacement therapy Z79.890 Assessments Encounter Date Diagnosis (ICD Code) Assessment Notes Treatment Notes Treatment Clinical Notes Section Notes 04/29/2024 Encounter for gynecological examination (general) (routine) without abnormal findings (ICD-10 - Z01.419) NO PAP TEST, DUE IN 2024. 04/29/2024 Encounter for screening mammogram for malignant neoplasm of breast (ICD-10 - Z12.31) REGULAR MAMMOGRAMS AND SBE'S WERE RECOMMENDED. 04/29/2024 Age-related osteoporosis without current pathological fracture (ICD-10 - M81.0) DISCUSSED HER BMD AND REM RESULTS AND OSTEOPOROSIS AND ITS IMPACT ON HER HEALTH. ADEQUATE CALCIUM AND VIT D. WEIGHT BEARING EXERCISES. OSTEO PRECAUTIONS. DISCUSSED HOW HRT HELPS BONE HEALTH. 04/29/2024 Hormone replacement therapy (ICD-10 - Z79.890) DISCUSSED BENEFITS AND RISKS OF HRT. SHE HAS NO CONTRAINDICATIONS AND ACCEPTS RISKS. CONTINUE CARE WITH [facility]. Plan Of Treatment Pending Test Test Name Order Date Urinalysis 11/29/2018 Urinalysis 11/19/2017 Urinalysis 12/11/2021 25OH VITAMIN D 07/19/2021 COMPLETE URINALYSIS 05/29/2020 COMPREHENSIVE METABOLIC PANEL 07/19/2021 N-TELOPEPTIDE CROSS 07/19/2021 PTH, INTACT 07/19/2021 THIN PREP,HPV,CARLYN IF HPV+ (>29YR)(DIAG) 11/29/2018 TSH 07/19/2021 URINE CULTURE 05/29/2020 BONE DENSITY 12/10/2020 BONE DENSITY 02/17/2023 MM Digital Mammo Screening 04/29/2024 MM Digital Mammo Screening 12/10/2020 MM Digital Mammo Screening 12/11/2021 MM Digital Mammo Screening 02/17/2023 MM Digital Mammo Screening 11/19/2017 Next Appt Details Provider Name:Jodee Arredondo Tom gilliland, 05/08/2025 10:00:00 AM, [address], [address], [place], [address], Insurance Providers Payer Name Payer Address Payer Phone Subscriber Number Group Number Insured Name Patient Relationship to Insured Coverage Start Date Coverage End Date [facility] [address] [place] [id number] HERMILO PATTERSON Self - patient is the insured Medical (General) History Medical History History ICD Code Menopausal and female climacteric states N95.1 Postmenopausal atrophic vaginitis N95.2 Stress incontinence (female) (male) N39. 3 Other microscopic hematuria R31.29 Disorder of bone density and structure, unspecified M85.9 Age-related osteoporosis without current pathological fracture M81.0 Surgical History Surgery Date(Month/Year) Non Malignant Tissue Removed From Right Breast 2004 Bilateral Tubal Ligation [place] Teeth 1984 ACL Reconstruction 11/04/2022 Hospitalization History Reason Date(Month/Year) See Surgical Hx 2 Vaginal Deliveries
--- OUTSIDE RECORDS SUMMARY | 2024-11-05 08:53 | XMS_ITS | Clinical Summary ---
Author Organization [facility] Address [address] [place] [address] Phone Care Team Providers Care Inside Sales Consultant Name Role Phone Trisha Dumont MD Primary Care Provider [phone] Allergies Active Allergy Reactions Criticality Noted Date Comments Clarithromycin 10/23/2020 Nitrofurantoin 10/23/2020 Medications levothyroxine (SYNTHROID, LEVOTHROID) 50 MCG tablet levothyroxine 50 mcg tablet TAKE 1 TABLET BY MOUTH EVERY DAY Active VITAMIN D PO Vitamin D Active B Complex Vitamins (VITAMIN B COMPLEX PO) vitamin B complex Active Trulance 3 MG tablet 1 Active estradiol (ESTRACE) 0.1 MG/GM vaginal cream 1 Active lubiprostone (AMITIZA) 24 MCG capsule Take 24 mcg by mouth 2 (two) times a day with meals Active Multiple Vitamin (Multi-Vitamin ) tablet Take by mouth Active Cholecalcifero l 50 MCG (2000 UT) capsule Take by mouth Acti ve albuterol HFA (PROVENTIL HFA;VENTOLIN HFA) 108 (90 Base) MCG/ACT inhaler Inhale 2 puffs 5 Active Active Problems Problem Noted Date Diagnosed Date Microscopic hematuria 10/23/2020 Diverticular disease 03/14/2011 Lactase deficiency 03/14/2011 Family history of colon polyp 01/02/2006 Overview (04/30/2021): Sibling with polyps, 12/22/05 Melchor--diverticulosis--repeat 12/2010 reportedly neg Family History Medical History Relation Comments Diabetes Father Cancer Mother Relation Status Comments Father Mother Social History Tobacco Use Types Packs/Day Years Used Date Smoking Tobacco: Never Smokeless Tobacco: Never Alcohol Use Standard Drinks/Week Comments Never 0 (1 standard drink = 0.6 oz pur e alcohol) Comments Unknown Sex and Gender Information Value Date Recorded Sex Assigned at Not on file Legal Sex Female 8:56 AM EDT Gender Identity Not on file Sexual Orientation Not on file Last Filed Vital Signs Vital Sign Reading Time Taken Comments Blood Pressure 122/62 11/07/2020 2:51 PM EDT Pulse 97 11/07/2020 2:51 PM EDT Temperature - - Respiratory Rate - - Oxygen Saturation 99% 11/07/2020 2:51 PM EDT Inhaled Oxygen Concentration - - Weight 55.5 kg (122 lb 6.4 oz) 11/07/2020 2:51 P M EDT Height - - Body Mass Index - - Plan of Treatment Health Maintenance Due Date Last Done Comments Breast Cancer Screening 1965 Hepatitis B Vaccine (1 of 3 - 19+ 3-dose series) 11/24 Colorectal Cancer Screening: Annual FOBT 2014 Colorectal Cancer Screening: Colonoscopy 2014 Colorectal Cancer Screening: Sigmoidoscopy 2014 Pneumococcal Vaccine: 50+ Years (1 of 1 - PCV) 016 Influenza Vaccine (Season Ended) 2025 Insurance [facility] Care Teams Inside Sales Consultant Relationship Specialty Start Date End Date Trisha Dumont MD [facility] [address] [place] [address] [phone] [place] [address] PCP - General Internal Medicine 09/21/20
--- OUTSIDE RECORDS SUMMARY | 2024-11-05 08:53 | XMS_ITS ---
Author Organization [employer] Address [address] 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, [address], [place], [address], Progress Notes * ANIVAL PATTERSONB:[birth year] (58 yo F)Acc No.[id number]:02/24/2024 PROGRESS NOTES Patient:?LEONARDO, HERMILO Appointment Provider:?Jodee gilliland M.D. :1965???Age:58 Y???Sex:Female D ate:02/24/2024 Address: [address], [id number] Pcp:Trisha Dumont MD Subjective: * Chief Complaints: * ???1. 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 * Medical History:? Objective: * Vitals:? Assessment: Plan: * Treatment: * Images: Billing Information: * Visit Code:? * Procedure Codes:? * Electronic signature of Tyrone Porter MD on 11/05/2024 at 08:53 AM EDT Sign off status: Pending * Appointment Provider:?Jodee Porter M.D. Date:?02/24/2024 Generated for Brooke gonsalez/Trell/Lily on:?11/05/2024 08:53 AM EDT
[2024-11-05 09:04] LABS: MANUAL DIFF FLAG NO
[2024-11-05 09:58] LABS: Basophils Percent Auto 0.2 % (0-2); Eosinophils Absolute Auto 0.1 X10*3/uL (0.0-0.4); Hematocrit 37.4 % (37.0-47.0); Hemoglobin 12.4 g/dl (12.0-16.0); Imm Gran Abs Auto 0.02 X10*3/uL (0.00-0.03); Imm Gran Pct Auto 0.3 % (0.0-0.4); Lymphocytes Absolute Auto 1.6 X10*3/uL (1.2-4.9); Lymphocytes Percent Auto 25.8 % (20-40); Mean Corpuscular HGB Conc 33.2 g/dl (31.0-35.0); Mean Corpuscular Hemoglobin 32.4 pg (27.0-33.0); Mean Corpuscular Volume 97.7 fL (80.0-98.0); Mean Platelet Volume 12.6 fL (9.4-12.3); Monocytes Absolute Auto 0.4 X10*3/uL (0.1-1.2); Neutrophils Absolute Auto 4.1 x10*3/uL (2.0-8.3); Neutrophils Percent Auto 65.7 % (45-73); Platelet Count 226 X10*3/uL (160-400); Red Blood Count 3.83 X10*6/uL (4.20-5.50); Red Cell Distribution Width 13.3 % (11.0-16.0); White Blood Count 6.3 X10*3/uL (4.8-10.8)
[2024-11-05 10:08] LABS: Alanine Aminotransferase 19 U/L (0-31); Albumin Level 4.3 g/dL (3.5-5.0); Alkaline Phosphatase 66 U/L (39-117); Anion Gap 11 (12-20); Aspartate Amino Transferase 22 U/L (5-31); Bilirubin Total 0.6 mg/dL (0.0-1.0); Blood Urea Nitrogen 11 mg/dL (9-16); Calcium 9.2 mg/dL (8.4-10.2); Carbon Dioxide 26 mmol/L (22-29); Chloride 108 mmol/L (96-108); Cholesterol 234 mg/dL (<200); Estimated Glomerular Filt Rate > 60; Glucose Fasting 88 mg/dL (60-99); HDL Cholesterol 47 mg/dL (>40); LDL Cholesterol Calculated 173 mg/dL (<100); Potassium 4.2 mmol/L (3.3-5.1); Sodium 141 mmol/L (135-145); Total Protein 6.9 g/dL (6.5-8.0); Triglycerides 70 mg/dL (<150)
[2024-11-05 10:22] LABS: TSH reflex Free T4 1.61 uIU/mL (0.32-4.0); Vitamin D 25-OH Total 116.4 ng/mL (>30)
== END 2024-11-05 08:51 | disposition home or self-care (01) ==
LOC: HO.LAB 08:50
PROVIDERS: PCP Internal Medicine; Visit Provider Internal Medicine
DX: Z00.00 Encounter for general adult medical examination without abnormal findings (principal); E78.5 Hyperlipidemia, unspecified; E55.9 Vitamin D deficiency, unspecified
CPT/HCPCS: 36415; 80053; 80061; 82306; 84443; 85025

== ENCOUNTER 2024-11-08 11:16 | Outpatient (AMB) | payer OTHER, SELFPAY ==
--- NOTE | 2024-11-08 11:18 | MHC.PC.OV ---
Vital Signs 11/08/24 11:19 Height 4 ft 8 in Weight 114 lb BMI 25.6 BP 124/74 Blood Pressure Location Rt brachial Position Sitting Pulse 96 Pulse Source Pulse Oximeter Temp 98.0 F Temp Source Oral Pulse Oximetry (%) 99 Oxygen Delivery Method Room Air Intake Visit Reasons: 6 months f/up Intake Note: Pt is here today for 6 months follow up visit. Pt states that she has noticed a lot of hair loss. Allergies nitrofurantoin Allergy (Unknown, Verified 11/08/24 11:19) hives Medication List - Last Reconciled 11/08/24 by Trisha Dumont MD alendronate 70 mg PO QWEEK [bio-identical hormones Estrogen, Progesterone, Testosterone, DHEA cream] cholecalciferol (vitamin D3) 125 mcg PO DAILY levothyroxine 50 mcg PO DAILY linaclotide (Linzess) 200 mcg PO DAILY magnesium PO DAILY vitamin B complex 1 cap PO DAILY Zepbound (tirzepatide (weight loss)) 2.5 mg (0.5 mL) subcut QWEEK NS Tobacco use date assessed: 11/08/24 Dental Screening Dental Screen Date: 11/08/24 Did you have a dental visit in the last 12 months?: Yes Did you have a dental problem in the last 6 months where you did not have access to dental care?: No Was dental information given to patient?: Patient has dentist HPI 6 months f/up HPI Details Patient presents for the follow-up of hypothyroidism osteoporosis. She has been taking Zepbound for 6 months and lost 30 lb. Patient complains of increased hair loss for the last 2 months. She denies using new hair products has been eating well-balanced diet and taking multivitamin supplement including biotin [facility] Medical History (Updated 11/08/24 @ 15:26 by Trisha Dumont MD) Osteoporosis Annual physical exam Vertigo Microscopic hematuria MANI positive Hypothyroid Hyperlipidemia IBS (irritable bowel syndrome) Surgical History H/O anterior cruciate ligament surgery (~10/2022) H/O colonoscopy Family History Father Diabetes Mother Lung cancer Social History Housing: House Alcohol intake: current Alcohol intake frequency: holidays/special occasions only Patient Tobacco Use Status: Never used Tobacco e-Cigarette/Vaping Use: Never Used service: No Current occupational status: employed Cognitive needs: No Hearing needs: No Vision needs: No Questionnaire PHQ-9 Over the last 2 weeks, how often have you been bothered by any of the following problems? 1. Little interest or pleasure in doing things: not at all 2. Feeling down, depressed, or hopeless: not at all 3. Trouble falling or staying asleep, or sleeping too much: not at all 4. Feeling tired or having little energy: not at all 5. Poor appetite or overeating: not at all 6. Feeling bad about yourself - or that you are a failure or have let yourself or your family down: not at all 7. Trouble concentrating on things, such as reading the newspaper or watching television: not at all 8. Moving or speaking so slowly that other people could have noticed. Or the opposite - being so fidgety or restless that you have been moving around a lot more than usual: not at all 9. Thoughts that you would be better off or of hurting yourself in some way: not at all Total score: 0 Depression Screening Interpretation: Negative Depression Screening Done: Yes 81248 - PHQ-9 Billing: Yes Source: Developed by Drs. Sha Barrera, Gracie Quarles, Marcus Kang and colleagues, with an educational carola from [employer]. Thrive Questionnaire Date Thrive assessed: 11/08/24 I am a: Patient What is your living situation today?: I choose not to answer this question Within the past 12 months, did the food you bought not last and you didn't have the money to get more?: I choose not to answer this question Within the past 12 months, did you worry whether your food would run out before you got money to buy more?: I choose not to answer this question Do you have trouble paying for medicines?: I choose not to answer this question Do you have trouble getting transportation to medical appointments?: I choose not to answer this question Do you have trouble paying your heating and electricity bill?: I choose not to answer this question Do you have trouble taking care of your child, family member or friend?: I choose not to answer this question Do you have trouble with day-to-day activities such as bathing, preparing meals, shopping, managing finances, etc.?: I choose not to answer this question Are you currently unemployed and looking for a job?: I choose not to answer this question Are you interested in more education?: I choose not to answer this question Please select the resources that you would like help with: None Currently or been in a relationship where the following occur: I choose not to answer THRIVE Score: 0 AUDIT C Alcohol Use Questionnaire (AUDIT-C) 1. How often do you have a drink containing alcohol?: Never 2. How many drinks containing alcohol do you have on a typical day when you are drinking?: 1 or 2 3. How often do you have six or more drinks on one occasion?: Never Total Score: 0 WALLACE-7 AMB Questionnaire WALLACE-7 Date WALLACE - 7 assessed: 11/08/24 Feeling nervous, anxious, or on edge: 0 = Not at all Not being able to stop or control worryin = Not at all Worrying too much about different things: 0 = Not at all Trouble relaxin = Not at all Being so restless that it is hard to sit still: 0 = Not at all Becoming easily annoyed or irritable: 0 = Not at all Feeling afraid as if something awful might happen: 0 = Not at all Total WALLACE-7 score (0-4 normal; 5-9 mild; 10-14 moderate; 15-21 severe): 0 Source: Developed by Drs. Sha Barrera, Gracie Quarles, Marcus Kang and colleagues, with an educational carola from [employer]. WALLACE-7 Assessment Billing WALLACE-7 Assessment Tool: WALLACE-7 Assessment 78071 Review of Systems Const All systems reviewed & are unremarkable except as noted in HPI and below Eyes Reports no additional complaints ENT Reports no additional complaints Card Reports no additional complaints Resp Reports no additional complaints GI Reports no additional complaints Reports no additional complaints Physical exam (Primary Care) Vital Signs: Last Vital Signs Temp 98.0 F 11/08/24 11:19 Pulse 96 11/08/24 11:19 BP 124/74 11/08/24 11:19 Pulse Ox 99 11/08/24 11:19 Oxygen Delivery Method Room Air 11/08/24 11:19 BMI result Body Mass Index 25.6 Tobacco/Smoking Status: Tobacco use Status Tobacco use date assessed 11/08/24 11/08/24 11:27 Patient Tobacco Use Status Never used Tobacco 11/08/24 11:27 e-Cigarette/Vaping Use Never Used 11/08/24 11:27 PHQ-9: PHQ-9 Score PHQ-9: Total score 0 11/08/24 11:52 Depression Screening Interpretation: Negative Thrive Assessment: Date of Thrive Assessment Date Thrive assessed 11/08/24 11/08/24 11:27 Currently or been in a relationship where the following occur: I choose not to answer Const General: no acute distress HENMT Other: General hair thinning on the crown of her head no skin lesions Face and sinus: Yes normal facial exam Throat: Yes posterior oropharynx normal Eyes General: appearance normal, both eyes and all related structures Neck Neck: Yes supple Resp Effort & Inspection: normal respiratory effort Auscultation: clear to auscultation bilaterally Cardio Rhythm: regular rhythm Heart sounds: S1 normal heart sound present and S2 normal heart sound present GI Inspection: Yes normal to inspection Palpation (GI): Soft to palpation Percussion: Yes normal to percussion Extrem General: Yes no clubbing, cyanosis or edema Coding Level of Care Code Est Pt Level 4 (54258) Diagnoses Alopecia L65.9 Overweight E66.3 Hypothyroid E03.9 Additional Codes WALLACE-7 Assessment Billing - WALLACE-7 Assessment Tool: WALLACE-7 Assessment 96754 ([id number]) PHQ-9 - 59408 - PHQ-9 Billing: Yes ([id number]) Assessment & Plan Assessment & Plan (1) Alopecia: Code(s): L65.9 - Nonscarring hair loss, unspecified Category: Medical Plan: Start finasteride 5 mg daily (2) Overweight: Comment: BMI 32.1 04/2024, on Zepbound lost 30 lbs in 6 months (04/2024-10/2024) Code(s): E66.3 - Overweight Category: Medical Plan: Continue Zepbound, patient will try taking every other week and will continue to monitor her weight (3) Hypothyroid: Code(s): E03.9 - Hypothyroidism, unspecified Category: Medical Plan: Continue levothyroxine Medications: New finasteride 5 mg PO DAILY 90 tabs 0RF Changed From Zepbound (tirzepatide (weight loss)) for 4 weeks 2.5 mg (0.5 mL) subcut QWEEK 6 mL 1RF NS To Zepbound (tirzepatide (weight loss)) 2.5 mg (0.5 mL) subcut QWEEK 6 mL 1RF NS
[2024-11-08 11:19] VITALS: BP 124/74; PULSE 96; TEMP 36.7; O2SAT 99; BMI 25.6
--- OUTSIDE RECORDS SUMMARY | 2024-11-08 12:33 | XMS_ITS ---
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 :1965???Age:58 Y???Sex:Female D ate:02/24/2024 Address: [place], [place] Pcp:Trisha Dumont MD Subjective: * Chief Complaints: * ???1. 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 * Medical History:? Objective: * Vitals:? Assessment: Plan: * Treatment: * Images: Billing Information: * Visit Code:? * Procedure Codes:? * Electronic signature of Tyrone Porter MD on 11/08/2024 at 12:33 PM EDT Sign off status: Pending * Appointment Provider:?Jodee Porter M.D. Date:?02/24/2024 Generated for Brooke gonsalez/Trell/Lily on:?11/08/2024 12:33 PM EDT
--- OUTSIDE RECORDS SUMMARY | 2024-11-08 12:33 | XMS_ITS | Clinical Summary ---
Author Organization Patient Business [employer] [facility] Address [address] [place] [address] Care Team Providers Care Promotional Advertising Assistant Name Role Phone Trisha Dumont MD Primary Care Provider [phone] Surgical History Surgery Date Site/Laterality Comments TUBAL LIGATION 1994 PROCEDURE: HISTORICAL TUBAL LIGATION COLONOSCOPY 12/2005, 12/2010 PROCEDURE: HISTORICAL COLONOSCOPY; COMMENT: no polyps, diverticuli OTHER SURGICAL HISTORY 2003 PROCEDURE: HISTORY OTHER; COMMENT: Breast biopsy right BREAST SURGERY 2003ish Right PROCEDURE: IN UNLISTED PROCEDURE BREAST; COMMENT: b9 scar tissue BREAST BIOPSY PROCEDURE: BX BREAST; PERC NEEDLE CORE W/IMAG GUID; COMMENT: rt uoq-cyst removed-2002 Medical History Medical History Date Comments Family history of colonic polyps 01/02/2006 DX:Family history of colonic polyps; COMMENT: Sibling with polyps, 12/22/05 Melchor--diverticulosis--repeat 12/2010 reportedly neg Lactase deficiency 03/14/2011 DX:Lactase de ficiency Diverticulosis 03/14/2011 DX:Diverticulosi s Family History Medical History Relation Name Comments Hyperlipidemia Mother Lung cancer Mother cig, possibly r elated to factory work Other: dementia Paternal Grandmother late in life Breast cancer Neg Hx Relation Name Status Comments Brother Alive x2 Daughter 1 Alive Daughter 2 Alive Father Alive Maternal Grandfather Maternal Grandmother Mother (Age 83) Pulmonary Fibrosis Paternal Grandfather Paternal Grandmother Sister Alive x4 Social History Tobacco Use Types Packs/Day Years Used Date Smoking Tobacco: Never Smokeless Tobacco: Never Alcohol Use Standard Drinks/Week Comments Yes 0 (1 standard drink = 0.6 oz pur e alcohol) Comments No Sex and Gender Information Value Date Recorded Sex Assigned at Female 06/10/2024 10:20 AM EST Legal Sex Female 7:06 PM EST Gender Identity Female 06/10/2024 10:20 AM EST Sexual Orientation Choose not to disclose 2023 10:20 AM EST Obstetrics History Para Term AB IAB SAB Ectopic Multiple Livin g Live Births 2 Last Filed Vital Signs Vital Sign Reading Time Taken Comments Blood Pressure - - Pulse - - Temperature - - Respiratory Rate - - Oxygen Saturation - - Inhaled Oxygen Concentration - - Weight 56.7 kg (125 lb) 07/16/2024 11:08 AM EST Height 142.2 cm (4' 8 ) 07/16/2024 11:08 AM EST Body Mass Index 28.02 07/16/2024 11:08 AM EST Plan of Treatment Health Maintenance Due Date Last Done Comments Hepatitis B Vaccines (1 of 3 - 19+ 3-dose series) 1984 Cervical Cancer Screening: Pap Smear 1986 Pneumococcal Vaccine: 50+ Years (1 of 1 - PCV) 11/25/2015 DTaP,Tdap,and Td Vaccines (2 - Td or Tdap) 03/14/2021 03/14/2011 Colorectal Cancer Screening: Colonoscopy 07/30/2021 Depression Screening 07/30/2021 HIV Screening 07/30/2021 Hepatitis C Screening 07/30/2021 Social Influencers of Health Screening 07/30/2021 COVID-19 Vaccine ( season) 2024 04/02/2021, 09/29/2020, 09/08/2020 Influenza Vaccine (Season Ended) 2025 05/29/2020 Breast Cancer Screening 07/16/2026 07/16/19, 07/13/2023, 07/14/2022, Additional history exists Osteoporosis Screening (Bone Density Screening) 07/13/2033 07/13/2023, 07/09/2021 Zoster Vaccines Completed 08/10/2020, 06/08/2020 HIB Vaccines Aged Out No longer eligi ble based on patient's age to complete this topic HPV Vaccines Aged Out No longer eligi ble based on patient's age to complete this topic Hepatitis A Vaccines Aged Out No long er eligible based on patient's age to complete this topic IPV Vaccines Aged Out No longer eligi ble based on patient's age to complete this topic MMR Vaccines Aged Out No longer eligi ble based on patient's age to complete this topic Meningococcal ACWY Vaccine Aged Out N o longer eligible based on patient's age to complete this topic Meningococcal B Vaccine Aged Out No l onger eligible based on patient's age to complete this topic Pneumococcal Vaccine: Pediatrics (0 to 5 Years) and At-Risk Patients (6 to 64 Years) Aged Out No longer eligible based on patient's age to complete this topic RSV Immunization Patients Under 20 months Aged Out No longer eligible based on patient's age to complete this topic Varicella Vaccines Aged Out No longer eligible based on patient's age to complete this topic Procedures Procedure Name Priority Date/Time Associated Diagnosis Comments MG MAMMO DIGITAL SCREENING W TRIPP BILAT Routine 07/16/2024 11:31 AM EST Encounter for screening mammogram for breast cancer FABI DEXA AXIAL SKELETON Routine 07/13/2023 9:35 AM EST Age-related osteoporosis without current pathological fracture from Last 3 Months or Most Recently Relevant to Health Maintenance Results * MG Mammo Digital Screening w Tripp bilat (07/16/2024 11:31 AM EST) Anatomical Region Laterality Modality Breast Bilateral Mammography 07/18/2024 7:45 AM EST Impressions 07/18/2024 7:48 AM EST No mammographic evidence of malignancy. A negative mammogram in the presence of a clinically suspicious palpable abnormality does not preclude the possibility of malignancy or alter the indications for biopsy. PQRI CPT II 3341F Code 75307, 75283 PQRI 225 CPT II 7025F TISSUE DENSITY: There are scattered areas of fibroglandular density. (BI-RADS category B) IMPRESSION: Benign. BI-RADS CATEGORY: 1 - NEGATIVE RECOMMENDATION: Screening bilateral mammogram is recommended in 1 year. Mammo Location: [facility], [address] [place] [address] -------- FINAL REPORT -------- Dictated By: Daniel Amato Dictated Date: 07/18/2024 07:45 ET Assigned Physician: Daniel Amato Reviewed and Electronically Signed By: Daniel Amato Signed Date: 07/18/2024 07:48 ET Workstation ID: [id number] Transcribed By: Self Edit Transcribed Date: 07/18/2024 07:45 ET Narrative 07/18/2024 7:48 AM EST CLINICAL: The patient is a 58 years Female presenting for routine screening mammography. COMPARISON: Most recently 07/13/2023 and most remotely 07/03/2017. ?? TECHNIQUE: Full-field digital mammography of the breasts bilaterally consisting of tomosynthesis in MLO and CC projection is performed in the [employer] 2000-D unit. ??Computer aided detection utilizing the iCAD system was utilized. FINDINGS: The breasts are seen to be composed of a combination of fatty and fibroglandular elements. ??There is no cluster of microcalcifications, mass, or area of architectural distortion. There is no skin thickening or nipple retraction. Procedure Note Daniel Amato MD - 07/18/2024 CLINICAL: The patient is a 58 years Female presenting for routinescreening mammography. COMPARISON: Most recently 07/13/2023 and most remotely 07/03/2017. TECHNIQUE: Full-field digital mammography of the breasts bilaterallyconsisting of tomosynthesis in MLO and CC projection is performed in the[employer] 2000-D unit. Computer aided detection utilizing the iCADsystem was utilized. FINDINGS: The breasts are seen to be composed of a combination of fattyand fibroglandular elements. There is no cluster of microcalcifications,mass, or area of architectural distortion. There is no skin thickening ornipple retraction. IMPRESSION: No mammographic evidence of malignancy. A negative mammogram in the presence of a clinically suspicious palpableabnormality does not preclude the possibility of malignancy or alter theindications for biopsy. PQRI CPT II 3341F Code 01715, 26768 PQRI 225 CPT II 7025F TISSUE DENSITY: There are scattered areas of fibroglandular density.(BI-RADS category B) IMPRESSION: Benign. BI-RADS CATEGORY: 1 - NEGATIVE RECOMMENDATION: Screening bilateral mammogram is recommended in 1 year. Mammo Location: [facility], [facility], [address] [place] [id number] -------- FINAL REPORT -------- Dictated By: Daniel Amato Dictated Date: 07/18/2024 07:45 ET Assigned Physician: Daniel Amato Reviewed and Electronically Signed By: Daniel Amato Signed Date: 07/18/2024 07:48 ET Workstation ID: [id number] Transcribed By: Self Edit Transcribed Date: 07/18/2024 07:45 ET us Self Referral Sppl IMG BI PROCEDURES Final Resul t * FABI DEXA AXIAL SKELETON (07/13/2023 9:35 AM EST) Anatomical Region Laterality Modality Mammography 07/13/2023 8:34 AM EST Narrative 07/13/2023 9:35 AM EST [facility] Diagnostic Imaging Department [address] [place], [place] [id number] Patient: ??HERMILO MOSES ?/Age/Sex: 1965 - 57 - F Unit#: ??[id number] ? Location/Status: ??SPDIMAM/REG CLI ? Mnemonic/Ordering Site: ??MAMDEXAAX/SPMAM Ordering Physician: ??JODEE HERNANDEZ MD Fabi Dexa Axial Skeleton - 07/13/23906 Report Status:Signed HISTORY: ??The patient is a 57-year-old postmenopausal female with clinical concern for metabolic bone disease. FINDINGS: ??Dual energy x-ray absorptiometry of the lumbar spine and femurs is performed. The mean bone mineral density at L1-L4 is 0.766 gm/cm2 which is 65% of that of young normals and 73% of that of age matched controls. This yields a T-score of -3.5 and a Z-score of -2.3 which is diagnostic of osteoporosis. The mean bone mineral density of the femurs bilaterally is 0.832 gm/cm2 which is 83% of that of young normals and 93% of that of age matched controls. ??This yields a T-score of -1.4 and a Z-score of -0.5 which is diagnostic of osteopenia. IMPRESSION: 1. Osteoporosis. ??There has been a decrease of 9.8% in bone mineral density in the lumbar spine since the prior examination of 07/09/2021. ??There has been a decrease of 0.8% in bone mineral density in the right femur and a decrease of 6.8% in bone mineral density in the left femur. 2. FRAX analysis yields a 10-year probability of major osteoporotic fracture of 4.2% and a 10-year probability of hip fracture of 0.4%. Code 50029 Dictating Physician: ??DANIEL AMATO MD Electronically Signed by: ??DANIEL AMATO MD Dic Date/Time: ??07/13/23 0933 Sign date/Time: ??07/13/23 0935 Procedure Note Daniel Amato MD - 02/08/2024 [facility] Diagnostic Imaging Department [address] [place], [place] [id number] Patient: JOSUÉHERMILO Ferguson/Age/Sex: 1965 - 57 - F Unit#: [id number] Location/Status: [facility] CLI Mnemonic/Ordering Site: MAMDEXAAX/SPMAM Ordering Physician: JODEE HERNANDEZ MD Fabi Dexa Axial Skeleton - 07/13/23906 Report Status:Signed HISTORY: The patient is a 57-year-old postmenopausal female withclinical concern for metabolic bone disease. FINDINGS: Dual energy x-ray absorptiometry of the lumbar spine and femursis performed. The mean bone mineral density at L1-L4 is 0.766 gm/cm2 which is65% of that of young normals and 73% of that of age matched controls. Thisyields a T-score of -3.5 and a Z-score of -2.3 which is diagnostic ofosteoporosis. The mean bone mineral density of the femurs bilaterally is 0.832 gm/vm4kltdn is 83% of that of young normals and 93% of that of age matched controls.This yields a T-score of -1.4 and a Z-score of -0.5 which is diagnostic of osteopenia. IMPRESSION: 1. Osteoporosis. There has been a decrease of 9.8% in bone mineraldensity in the lumbar spine since the prior examination of 07/09/2021. There has juan decrease of 0.8% in bone mineral density in the right femur and a decreaseof 6.8% in bone mineral density in the left femur. 2. FRAX analysis yields a 10-year probability of major osteoporoticfracture of 4.2% and a 10-year probability of hip fracture of 0.4%. Code 18505 Dictating Physician: DANIEL AMATO MD Electronically Signed by: DANIEL AMATO MD Dic Date/Time: 07/13/23932 Sign date/Time: 07/13/23934 Jodee Hernandez MD IMG BI PROCEDURES Final Re sult from Last 3 Months or Most Recently Relevant to Health Maintenance Insurance [facility] Care Teams Promotional Advertising Assistant Relationship Specialty Start Date End Date Trisha Dumont MD PCP - General Internal Medicine 06/10/24
--- OUTSIDE RECORDS SUMMARY | 2024-11-08 12:33 | XMS_ITS | Patient Health Record ---
Author Organization [employer] [facility] Address [address] [place] [address] Care Team Providers Care Riding Silks Custodian Name Role Phone Trisha Dumont MD Primary Care Provider Jodee Kirkland Unavailable [phone] Allergies No Known Allergies Results Component Value [...] Status W/U Status Risk Notes Problem Menopause (880448719) Menopausal and female climacteric states (N95.1) Active confirmed Problem Postmenopausal atrophic vaginitis (83768713) Postmenopausal atrophic vaginitis (N95.2) Active confirmed Problem SI - Stress incontinence (35276668) Stress incontinence (female) (male) (N39.3) Active confirmed Problem Age-related osteoporosis without current pathological fracture (M81.0) Active confirmed Problem Menopause (548393309) Menopausal and female climacteric states (N95.1) Active confirmed Vital Signs Temperature 97.7 degrees Fahrenheit 04/29/2024 Blood pressure diastolic 74 mm Hg 04/29/2024 Height 56 in 04/29/2024 Blood pressure systolic 132 mm Hg 04/29/2024 Weight 139 lbs 04/29/2024 BMI 31.16 kg/m2 04/29/2024 Encounters Encounter Location Date Provider Diagnosis [address] [address] 04/29/2024 Jodee Porter Encounter for gynecological examination [...] Screening 11/19/2017 Next Appt Details Provider Name:Jodee Santos darshana, 05/08/2025 10:00:00 AM, [address] [facility], [address], [place], [address], Insurance Providers Payer Name Payer Address Payer Phone Subscriber Number Group Number Insured Name Patient Relationship to Insured Coverage Start Date Coverage End Date [facility] [address] [place] [phone] [id number] [facility] HERMILO PATTERSON Self - patient is the [...] From Right Breast 2004 Bilateral Tubal Ligation [place]eth 1983 ACL Reconstruction 11/04/2022 Hospitalization History Reason Date(Month/Year) See Surgical Hx 2 Vaginal Deliveries
--- OUTSIDE RECORDS SUMMARY | 2024-11-08 12:33 | XMS_ITS | Clinical Summary ---
Author Organization [facility] Address [address] [facility] [address] [place] [address] Phone Care Team Providers Care Electric Meter Repairer Apprentice Name Role Phone Trisha Dumont MD Primary Care Provider [phone] Allergies Active Allergy Reactions Criticality Noted Date [...] 016 Influenza Vaccine (Season Ended) 2025 Insurance [facility] Care Teams Electric Meter Repairer Apprentice Relationship Specialty Start Date End Date Trisha Dumont MD [facility] [address] [place] [address] [phone] [place] [address] PCP - General Internal Medicine 09/21/20
== END 2024-11-08 13:52 | disposition home or self-care (01) ==
LOC: HO.HMCC 11:17
PROVIDERS: PCP Internal Medicine; Visit Provider Internal Medicine
DX: L65.9 Nonscarring hair loss, unspecified (principal); E66.3 Overweight; E03.9 Hypothyroidism, unspecified

== ENCOUNTER → 2024-11-08 11:16 | Outpatient (BNVA) | payer OTHER, SELFPAY | PROVIDERS: PCP Internal Medicine; Visit Provider Internal Medicine | DX: E03.9 Hypothyroidism, unspecified (principal); M81.0 Age-related osteoporosis without current pathological fracture; L65.9 Nonscarring hair loss, unspecified; E66.3 Overweight; Z68.25 Body mass index [BMI] 25.0-25.9, adult | CPT/HCPCS: 96127 ==

== ENCOUNTER 2024-11-23 11:03 | Outpatient (AMB) | payer OTHER, SELFPAY ==
--- NOTE | 2024-11-23 11:08 | HO.NEPHOV ---
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: No Accompanied by: Self / Same As Patient Allergies nitrofurantoin Allergy (Unknown, Verified 11/23/24 11:10) hives Medication List - Last Reconciled 11/23/24 by Will Simeon MD alendronate 70 mg PO QWEEK [bio-identical hormones Estrogen, Progesterone, Testosterone, DHEA cream] cholecalciferol (vitamin D3) 125 mcg PO DAILY finasteride 5 mg PO DAILY levothyroxine 50 mcg PO DAILY linaclotide (Linzess) 200 mcg PO DAILY magnesium PO DAILY minoxidil 2.5 mg PO DAILY multivit with min-folic acid 0.4 mg (One Daily Womens 50 Plus) tabs PO DAILY tirzepatide (weight loss) (Zepbound) 2.5 mg subcut QWEEK vitamin B complex 1 cap PO DAILY HPI Comments Details: Middle-aged woman with a history of microscopic hematuria since childhood. She is undergone extensive workup urologically including cystoscopies and CT scans. No other course of the time renal function has been stable she has no significant proteinuria. 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 This spontaneously resolved. This recurred again in April 2020. She has had no further issues. She is here for routine follow-up. Being evaluated for osteoporosis 11/23/24 58-year-old female presenting for follow-up nephrology care and management of hair loss. She has a documented history of stable kidney function with microscopic hematuria. The most recent evaluation by Dr. Dumont in October confirmed stable renal function. There are plans for repeat urine testing to check proteinuria. The patient has experienced significant weight reduction attributed to Zepbound and maintains this through dietary management and regular exercise following an ACL repair two years prior. The patient expresses concerns about recent hair loss likely secondary to weight loss. She received consultations from a buffing machine operator and was prescribed oral Minoxidil with initial dose adjustments, alongside Finasteride. She is aware of possible side effects, including hypotension and excess hair in undesired areas, with discussions ongoing about alternative topical treatments. REPLACED BY [facility] Medical History (Updated 11/08/24 @ 15:26 by Trisha Dumont MD) Osteoporosis Annual physical exam Vertigo Microscopic hematuria MANI positive Hypothyroid Hyperlipidemia IBS (irritable bowel syndrome) Surgical History H/O anterior cruciate ligament surgery (~10/2022) H/O colonoscopy Family History Father Diabetes Mother Lung cancer Social History Housing: House Alcohol intake: current Alcohol intake frequency: holidays/special occasions only Patient Tobacco Use Status: Never used Tobacco e-Cigarette/Vaping Use: Never Used service: No Current occupational status: employed Cognitive needs: No Hearing needs: No Vision needs: No Physical Exam Vital Signs: Last Vital Signs Pulse 85 11/23/24 11:09 BP 122/76 11/23/24 11:09 Pulse Ox 100 11/23/24 11:09 Oxygen Delivery Method Room Air 11/23/24 11:09 BMI result Body Mass Index 26.0 Const General: comfortable Nutritional Appearance: well nourished Orientation/consciousness: patient oriented x3 HEENT Head: No normal to inspection Mouth: moist mucous membranes Neck Neck: Yes supple and Yes no JVD Resp Auscultation: clear to auscultation bilaterally, no rales and rub present Cardio Jugular venous distension: no JVD Palpation: no palpable S3 and no palpable S4 Heart sounds: no rubs GI Palpation (GI): Soft to palpation and nontender Percussion: No Fluid wave present General: Yes no CVA tenderness Back/Spine/Pelvis Back: no CVA tenderness Skin General skin exam: no rashes or lesions noted Neuro General: patient oriented x3 Extrem General: Yes no pedal edema and No clubbing Results Reviewed Nephrology Results: Hgb 12.4 g/dl (12.0-16.0) 11/05/24 WBC 6.3 X10*3/uL (4.8-10.8) 11/05/24 Plt Count 226 X10*3/uL (160-400) 11/05/24 Sodium 141 mmol/L (135-145) 11/05/24 Potassium 4.2 mmol/L (3.3-5.1) 11/05/24 Chloride 108 mmol/L (96-108) 11/05/24 Carbon Dioxide 26 mmol/L (22-29) 11/05/24 BUN 11 mg/dL (9-16) 11/05/24 Creatinine 0.79 mg/dL (0.5-1.4) 11/05/24 Calcium 9.2 mg/dL (8.4-10.2) 11/05/24 Urine Protein Negative mg/dL (Neg-Trace) 10/03/23 Assessment & Plan Assessment & Plan (1) Hyperkalemia: Code(s): E87.5 - Hyperkalemia Category: Medical (2) Microscopic hematuria: Comment: CT of the abdomen and pelvis and cystoscopy negative August 2020 Code(s): R31.29 - Other microscopic hematuria Category: Medical Plan: h/o microscopic hematuria with negative urological workup. REpeat UA did not revela any blood/RBCs or protein Given the history of leukocytoclastic vasculitis serological workup was completed .No significant findings No indication for kidney biopsy. Hyperkalemia in a setting of normal creatinine PA and PRA normal Possible pseudohyperkalemia Ordered blood samples to be drawn without tourniquet and avoid narrow gauge needles/butterfly. To be done directly at the hospital lab and not a satellite draw station Plan Caitlin has mild CKD. Overall renal function stable however she has had episodes of hyperkalemia which remains unexplained. She should stay on low-sodium diet she will follow up potassium levels. The patient will have a repeat urine test to evaluate proteinuria, crucial for monitoring her known microscopic hematuria and stable kidney function. Continued weight maintenance with Zepbound, coupled with exercise, remains prioritized to support renal health. For hair loss, the strategy includes careful titration of Minoxidil and maintaining Finasteride, with an evaluation of topical alternatives to reduce systemic side effects. A follow-up with dermatology in six months is necessary to review treatment outcomes and adjust accordingly. Monitoring for adverse effects related to lower blood pressure and fluid retention will be essential in managing Minoxidil use, balancing benefits, and potential adverse reactions. Orders: Orders Creatinine Urine Today Will Simeon MD R31.29 - Other microscopic hematuria UA and rflx microscopic Today Will Simeon MD R31.29 - Other microscopic hematuria Total Protein Urine Random Today Will Linda Simeon MD R31.29 - Other microscopic hematuria Medications: Changed From Zepbound (tirzepatide (weight loss)) 2.5 mg (0.5 mL) subcut QWEEK 6 mL 1RF NS To tirzepatide (weight loss) (Zepbound) Every other week 2.5 mg subcut QWEEK Trisha Dumont MD Coding Level of Care Code Est Pt Level 4 (23329) Diagnoses Hyperkalemia E87.5 Microscopic hematuria R31.29
[2024-11-23 11:09] VITALS: BP 122/76; PULSE 85; O2SAT 100; BMI 26.0
--- OUTSIDE RECORDS SUMMARY | 2024-11-23 11:57 | XMS_ITS | Clinical Summary ---
Author Organization [employer] [facility] Address [address] [place] [address] Care Team Providers Care Manager Materials Management Name Role Phone Trisha Dumont MD Primary Care Provider Surgical History Surgery Date Site/Laterality Comments TUBAL LIGATION 1994 PROCEDURE: HISTORICAL TUBAL LIGATION COLONOSCOPY 12/2005, 12/2010 PROCEDURE: HISTORICAL COLONOSCOPY; COMMENT: no polyps, diverticuli OTHER SURGICAL HISTORY 2003 PROCEDURE: HISTORY OTHER; COMMENT: Breast biopsy right BREAST SURGERY 2003ish Right PROCEDURE: [place] UNLISTED PROCEDURE BREAST; COMMENT: b9 scar tissue [...] for biopsy. PQRI CPT II 3341F Code 07574, 70529 PQRI 225 CPT II 7025F TISSUE DENSITY: There are scattered areas of fibroglandular density. (BI-RADS category B) IMPRESSION: Benign. BI-RADS CATEGORY: 1 - NEGATIVE RECOMMENDATION: Screening bilateral mammogram is recommended in 1 year. Mammo Location: [facility], [address] [place] [address] -------- FINAL REPORT -------- Dictated By: Daniel Amato Dictated Date: 07/18/2024 07:45 ET Assigned Physician: Daniel Amato Reviewed and Electronically Signed By: Daniel Amato Signed Date: 07/18/2024 07:48 ET Workstation ID: [id number] Transcribed By: Self Edit Transcribed Date: 07/18/2024 07:45 ET Narrative 07/18/2024 7:48 AM EST CLINICAL: The patient is a 58 years Female presenting for routine screening mammography. COMPARISON: Most recently 07/13/2023 and most remotely 07/03/2017. ?? TECHNIQUE: Full-field digital mammography of the breasts bilaterally consisting of tomosynthesis in MLO and CC projection is performed in the [employer] 2000-D unit. ??Computer aided detection utilizing the [...] MLO and CC projection is performed in the[employer] 2000-D unit. Computer aided detection utilizing the [...] for biopsy. PQRI CPT II 3341F Code 47919, 47356 PQRI 225 CPT II 7025F TISSUE DENSITY: There are scattered areas of fibroglandular density.(BI-RADS category B) IMPRESSION: Benign. BI-RADS CATEGORY: 1 - NEGATIVE RECOMMENDATION: Screening bilateral mammogram is recommended in 1 year. Mammo Location: [facility], [address] [place] [address] -------- FINAL REPORT -------- Dictated By: Daniel Amato Dictated Date: 07/18/2024 07:45 ET Assigned Physician: Daniel Amato Reviewed and Electronically Signed By: Daniel Amato Signed Date: 07/18/2024 07:48 ET Workstation ID: [id number] Transcribed By: Self Edit Transcribed Date: 07/18/2024 07:45 ET us Self Referral Sppl IMG BI PROCEDURES Final Resul t * FABI DEXA AXIAL SKELETON (07/13/2023 9:35 AM EST) Anatomical Region Laterality Modality Mammography 07/13/2023 8:34 AM EST Narrative 07/13/2023 9:35 AM EST [facility] Diagnostic Imaging Department [address] [place], [place] [id number] Patient: ??HERMILO MOSES ?/Age/Sex: 1965 - 57 - F Unit#: ??[id number] ? Location/Status: ??SPDIMAM/REG CLI ? Mnemonic/Ordering Site: [...] probability of hip fracture of 0.4%. Code 82406 Dictating Physician: ??DANIEL AMATO MD Electronically Signed by: ??DANIEL AMATO MD Dic Date/Time: ??07/13/23 0933 Sign date/Time: ??07/13/23 0935 Procedure Note Daniel Amato MD - 02/08/2024 [facility] Diagnostic Imaging Department [address] [place], [place] [id number] Patient: JOSUÉHERMILO Ferguson/Age/Sex: 1965 - 57 - F Unit#: [id number] Location/Status: [facility] CLI Mnemonic/Ordering Site: MAMDEXAAX/SPMAM Ordering Physician: [...] density of the femurs bilaterally is 0.832 gm/pm6tifhy is 83% of that of young normals [...] probability of hip fracture of 0.4%. Code 23322 Dictating Physician: DANIEL AMATO MD Electronically Signed by: DANIEL AMATO MD Dic Date/Time: 07/13/23932 Sign date/Time: 07/13/23934 Jodee Hernandez MD IMG BI PROCEDURES Final Re sult from Last 3 Months or Most Recently Relevant to Health Maintenance Insurance [facility] Care Teams Manager Materials Management Relationship Specialty Start Date End Date Trisha Dumont MD PCP - General Internal Medicine 06/10/24
== END 2024-11-23 11:40 | disposition home or self-care (01) ==
PROVIDERS: PCP Internal Medicine; Visit Provider Internal Medicine Hypertension Specialist
DX: E87.5 Hyperkalemia (principal); R31.29 Other microscopic hematuria
CPT/HCPCS: 99214

== ENCOUNTER 2024-11-23 11:42 | Outpatient (REF) | payer OTHER, SELFPAY ==
[2024-11-23 18:27] LABS: Appearance Urine Clear; Color Urine Yellow; Glucose Urine UA Negative (Negative); Leukocyte Esterase Urine Negative (Negative); Nitrite Urine Negative (Negative); Urine Blood Negative (Negative); Urine Ketones Negative (Negative); Urine Protein Negative (Neg-Trace)
[2024-11-23 18:41] LABS: Creatinine Urine 60.56 mg/dL; Total Protein Urine Random < 7 mg/dL (<12)
== END 2024-11-23 11:43 | disposition home or self-care (01) ==
LOC: HO.HKASLDS 11:42
PROVIDERS: Visit Provider Internal Medicine Hypertension Specialist
DX: R31.29 Other microscopic hematuria (principal)
CPT/HCPCS: 81003; 82570; 84156

== ENCOUNTER 2025-05-10 09:58 | Outpatient (AMB) | payer OTHER, SELFPAY ==
[2025-05-10 10:05] VITALS: BP 110/74; PULSE 87; RESP 16; TEMP 36.7; O2SAT 99; BMI 25.3
--- NOTE | 2025-05-10 10:05 | MHC.PC.OV ---
Vital Signs 05/10/25 10:05 Height 4 ft 8 in Weight 113 lb BMI 25.3 BP 110/74 Blood Pressure Location Rt brachial Position Sitting Respiration 16 Pulse 87 Pulse Source Pulse Oximeter Temp 98.1 F Temp Source Oral Pulse Oximetry (%) 99 Oxygen Delivery Method Room Air Intake Visit Reasons: Annual PE Intake Note: Pt is here today for PE. Allergies nitrofurantoin Allergy (Unknown, Verified 05/10/25 10:06) hives Medication List - Last Reconciled 05/10/25 by Trisha Dumont MD alendronate 70 mg PO QWEEK [bio-identical hormones Estrogen, Progesterone, Testosterone, DHEA cream] cholecalciferol (vitamin D3) 125 mcg PO DAILY levothyroxine 50 mcg PO DAILY linaclotide (Linzess) 200 mcg PO DAILY magnesium PO DAILY minoxidil 2.5 mg PO DAILY multivit with min-folic acid 0.4 mg (One Daily Womens 50 Plus) tabs PO DAILY vitamin B complex 1 cap PO DAILY Wegovy (semaglutide (weight loss)) 0.25 mg (0.5 mL) subcut QWEEK NS Tobacco use date assessed: 05/10/25 Dental Screening Dental Screen Date: 11/08/24 HPI Annual PE HPI Details Patient presents for physical [facility] Medical History (Updated 05/10/25 @ 11:24 by Trisha Dumont MD) Osteoporosis Annual physical exam Vertigo Microscopic hematuria MANI positive Hypothyroid Hyperlipidemia IBS (irritable bowel syndrome) Surgical History H/O anterior cruciate ligament surgery (~10/2022) H/O colonoscopy Family History Father Diabetes Mother Lung cancer Social History Housing: House Alcohol intake: current Alcohol intake frequency: holidays/special occasions only Patient Tobacco Use Status: Never used Tobacco e-Cigarette/Vaping Use: Never Used service: No Current occupational status: employed Cognitive needs: No Hearing needs: No Vision needs: No Questionnaire PHQ-9 Over the last 2 weeks, how often have you been bothered by any of the following problems? 1. Little interest or pleasure in doing things: not at all 2. Feeling down, depressed, or hopeless: not at all 3. Trouble falling or staying asleep, or sleeping too much: not at all 4. Feeling tired or having little energy: not at all 5. Poor appetite or overeating: not at all 6. Feeling bad about yourself - or that you are a failure or have let yourself or your family down: not at all 7. Trouble concentrating on things, such as reading the newspaper or watching television: not at all 8. Moving or speaking so slowly that other people could have noticed. Or the opposite - being so fidgety or restless that you have been moving around a lot more than usual: not at all 9. Thoughts that you would be better off or of hurting yourself in some way: not at all Total score: 0 Depression Screening Interpretation: Negative Depression Screening Done: Yes Source: Developed by Drs. Sha Barrera, Gracie Quarles, Marcus Kang and colleagues, with an educational carola from [employer]. Thrive Questionnaire Date Thrive assessed: 11/06/24 I am a: Patient What is your living situation today?: I choose not to answer this question Within the past 12 months, did the food you bought not last and you didn't have the money to get more?: I choose not to answer this question Within the past 12 months, did you worry whether your food would run out before you got money to buy more?: I choose not to answer this question Do you have trouble paying for medicines?: I choose not to answer this question Do you have trouble getting transportation to medical appointments?: I choose not to answer this question Do you have trouble paying your heating and electricity bill?: I choose not to answer this question Do you have trouble taking care of your child, family member or friend?: I choose not to answer this question Do you have trouble with day-to-day activities such as bathing, preparing meals, shopping, managing finances, etc.?: I choose not to answer this question Are you currently unemployed and looking for a job?: I choose not to answer this question Are you interested in more education?: I choose not to answer this question Please select the resources that you would like help with: None Currently or been in a relationship where the following occur: I choose not to answer THRIVE Score: 0 WALLACE-7 AMB Questionnaire WALLACE-7 Date WALLACE - 7 assessed: 11/08/24 Feeling nervous, anxious, or on edge: 0 = Not at all Not being able to stop or control worryin = Not at all Worrying too much about different things: 0 = Not at all Trouble relaxin = Not at all Being so restless that it is hard to sit still: 0 = Not at all Becoming easily annoyed or irritable: 0 = Not at all Feeling afraid as if something awful might happen: 0 = Not at all Total WALLACE-7 score (0-4 normal; 5-9 mild; 10-14 moderate; 15-21 severe): 0 Source: Developed by Drs. Sha Barrera, Gracie Quarles, Marcus Kang and colleagues, with an educational carola from [employer]. Review of Systems Const All systems reviewed & are unremarkable except as noted in HPI and below Eyes Reports no additional complaints ENT Reports no additional complaints Card Reports no additional complaints Resp Reports no additional complaints GI Reports no additional complaints Reports no additional complaints Musc Reports no additional complaints Physical exam (Primary Care) Vital Signs: Last Vital Signs Temp 98.1 F 05/10/25 10:05 Pulse 87 05/10/25 10:05 Resp 16 05/10/25 10:05 BP 110/74 05/10/25 10:05 Pulse Ox 99 05/10/25 10:05 Oxygen Delivery Method Room Air 05/10/25 10:05 BMI result Body Mass Index 25.3 Tobacco/Smoking Status: Tobacco use Status Tobacco use date assessed 05/10/25 05/10/25 10:12 Patient Tobacco Use Status Never used Tobacco 05/10/25 10:12 e-Cigarette/Vaping Use Never Used 05/10/25 10:12 PHQ-9: PHQ-9 Score PHQ-9: Total score 0 05/10/25 10:12 Depression Screening Interpretation: Negative Thrive Assessment: Date of Thrive Assessment Date Thrive assessed 11/06/24 05/10/25 10:12 Currently or been in a relationship where the following occur: I choose not to answer Const General: no acute distress HENMT Head: Yes normal to inspection Ears: hearing grossly normal bilaterally Face and sinus: Yes normal facial exam Mouth: Normal oral and palatal mucosa present Eyes General: appearance normal, both eyes and all related structures Neck Neck: Yes no lymphadenopathy and Yes supple Resp Effort & Inspection: normal respiratory effort Auscultation: clear to auscultation bilaterally Cardio Rhythm: regular rhythm Heart sounds: S1 normal heart sound present and S2 normal heart sound present GI Inspection: Yes normal to inspection Palpation (GI): Soft to palpation Percussion: Yes normal to percussion Auscultation: normal bowel sounds Coding Level of Care Code Est Pt Prev Care 40-64y(06531) Diagnoses Osteoporosis M81.0 Hypothyroid E03.9 Hyperlipidemia E78.5 Annual physical exam Z00.00 Assessment & Plan Assessment & Plan (1) Osteoporosis: Comment: DEXA 07/13 BY [facility], started on bioidentical hormones by [facility] 07/13, DEXA 07/15 T score -3.5 L spine decrease 9.8% from 2021. Started on Fosamax 05/2024 Dr. Mika Rivera, f/u by [facility] endo Code(s): M81.0 - Age-related osteoporosis without current pathological fracture Category: Medical Plan: Continue Fosamax vitamin-D and weight-bearing exercises, patient will have DEXA in November ordered by installer inspector final (2) Hypothyroid: Code(s): E03.9 - Hypothyroidism, unspecified Category: Medical Plan: Continue levothyroxine (3) Hyperlipidemia: Comment: refused statins, on low-cholesterol diet Code(s): E78.5 - Hyperlipidemia, unspecified Category: Medical Plan: Continue low-cholesterol diet (4) Annual physical exam: Code(s): Z00.00 - Encounter for general adult medical examination without abnormal findings Category: Medical Plan: Well-balanced diet regular physical activity discussed with the patient. She is up-to-date with the mammogram colonoscopy and Pap by installer inspector final. Patient will return in 1 year with a fasting labs before Orders: Orders UA w Microscopic 1 Year E03.9 - Hypothyroidism, unspecified, E78.5 - Hyperlipidemia, unspecified, M81.0 - Age-related osteoporosis without current pathological fracture Comprehensive [place]. Panel Fast 1 Year E03.9 - Hypothyroidism, unspecified, E78.5 - Hyperlipidemia, unspecified, M81.0 - Age-related osteoporosis without current pathological fracture Complete Blood Count Auto Diff 1 Year E03.9 - Hypothyroidism, unspecified, E78.5 - Hyperlipidemia, unspecified, M81.0 - Age-related osteoporosis without current pathological fracture Lipid Panel 1 Year E03.9 - Hypothyroidism, unspecified, E78.5 - Hyperlipidemia, unspecified, M81.0 - Age-related osteoporosis without current pathological fracture TSH reflex Free T4 1 Year E03.9 - Hypothyroidism, unspecified, E78.5 - Hyperlipidemia, unspecified, M81.0 - Age-related osteoporosis without current pathological fracture Vitamin D 25-OH Total 1 Year E03.9 - Hypothyroidism, unspecified, E78.5 - Hyperlipidemia, unspecified, M81.0 - Age-related osteoporosis without current pathological fracture
--- OUTSIDE RECORDS SUMMARY | 2025-05-10 18:45 | XMS_ITS | Clinical Summary ---
Author Organization [facility] Address [address] [place] [address] Care Team Providers Care Deicer Inspector Electric Name Role Phone Trisha Dumont MD Primary Care Provider [phone] Medications linaCLOtide (Linzess) 290 mcg capsuleIndication s:Irritable bowel syndrome with constipation TAKE 1 CAPSULE BY MOUTH EVERY DAY 90 capsule 1 5 Active Surgical History Surgery Date Site/Laterality Comments TUBAL LIGATION 1994 PROCEDURE: HISTORICAL TUBAL LIGATION COLONOSCOPY 12/2005, 12/2010 PROCEDURE: HISTORICAL COLONOSCOPY; COMMENT: no polyps, diverticuli OTHER SURGICAL HISTORY 2003 PROCEDURE: HISTORY OTHER; COMMENT: Breast biopsy right BREAST SURGERY 2003ish Right PROCEDURE: [place] UNLISTED PROCEDURE BREAST; COMMENT: b9 scar tissue [...] Health Maintenance Due Date Last Done Comments Colorectal Cancer Screening: Colonoscopy 1965 Hepatitis B Vaccines (1 of 3 - 19+ 3-dose series) 1984 Cervical Cancer Screening: Pap Smear 1986 Pneumococcal Vaccine: 50+ Years (1 of 1 - PCV) 11/25/2015 DTaP,Tdap,and Td Vaccines (2 - Td or Tdap) 03/14/2021 03/14/2011 HIV Screening 07/30/2021 Hepatitis C Screening 07/30/2021 Social Influencers of Health Screening 07/30/2021 Depression Screening 06/22/2024 COVID-19 Vaccine (2024- season) 2025 04/02/2021, 09/29/2020, 09/08/2020 Influenza Vaccine (#1) 2025 05/29/2020 Breast Cancer Screening 07/16/2026 07/16/19, 07/13/2023, 07/14/2022, Additional history exists Osteoporosis Screening (Bone Density Screening) 07/13/2033 07/13/2023, 07/09/2021 RSV Immunization Adult Patients (1 - 1-dose 75+ series) 2040 Zoster Vaccines Completed 08/10/2020, 06/08/2020 HIB Vaccines [...] Encounter for screening mammogram for breast cancer [facility] DEXA AXIAL SKELETON Routine 07/13/2023 9:35 AM [...] for biopsy. PQRI CPT II 3341F Code 00633, 78272 PQRI 225 CPT II 7025F TISSUE DENSITY: There are scattered areas of fibroglandular density. (BI-RADS category B) IMPRESSION: Benign. BI-RADS CATEGORY: 1 - NEGATIVE RECOMMENDATION: Screening bilateral mammogram is recommended in 1 year. Mammo Location: [facility], [address] [place] [id number] -------- FINAL REPORT -------- Dictated By: Daniel Amato Dictated Date: 07/18/2024 07:45 ET Assigned Physician: Daniel Amato Reviewed and Electronically Signed By: Daniel Amato Signed Date: 07/18/2024 07:48 ET Workstation ID: [id number] Transcribed By: Self Edit Transcribed Date: 07/18/2024 07:45 ET Narrative 07/18/2024 7:48 AM EST CLINICAL: The patient is a 58 years Female presenting for routine screening mammography. COMPARISON: Most recently 07/13/2023 and most remotely 07/03/2017. TECHNIQUE: Full-field digital mammography of the breasts bilaterally consisting of tomosynthesis in MLO and CC projection is performed in the [employer] 2000-D unit. Computer aided detection utilizing the [employer] system was utilized. FINDINGS: The breasts are seen to be composed of a combination of fatty and fibroglandular elements. There is no cluster of microcalcifications, mass, or [...] MLO and CC projection is performed in the[employer] 2000-D unit. Computer aided detection utilizing the [...] for biopsy. PQRI CPT II 3341F Code 97244, 15970 PQRI 225 CPT II 7025F TISSUE DENSITY: There are scattered areas of fibroglandular density.(BI-RADS category B) IMPRESSION: Benign. BI-RADS CATEGORY: 1 - NEGATIVE RECOMMENDATION: Screening bilateral mammogram is recommended in 1 year. Mammo Location: [facility], [address] [place] [address] -------- FINAL REPORT -------- Dictated By: Daniel Amato Dictated Date: 07/18/2024 07:45 ET Assigned Physician: Daniel Amato Reviewed and Electronically Signed By: Daniel Amato Signed Date: 07/18/2024 07:48 ET Workstation ID: [id number] Transcribed By: Self Edit Transcribed Date: 07/18/2024 07:45 ET us Self Referral Sppl IMG BI PROCEDURES Final Resul t * FABI DEXA AXIAL SKELETON (07/13/2023 9:35 AM EST) Anatomical Region Laterality Modality Mammography 07/13/2023 8:34 AM EST Narrative 07/13/2023 9:35 AM EST [facility] Diagnostic Imaging Department [address] [place] [address] Patient: LEONARDOHERMILO Selma SantillanB./Age/Sex: 1965 - 57 - F Unit#: [id number] [facility] Ordering Physician: JODEE HERNANDEZ MD Fabi Dexa Axial Skeleton - 07/13/23906 Report Status:Signed HISTORY: The patient is a 57-year-old postmenopausal female with clinical concern for metabolic bone disease. FINDINGS: Dual [...] 93% of that of age matched controls. This yields a T-score of -1.4 and a Z-score of -0.5 which is diagnostic of osteopenia. IMPRESSION: 1. Osteoporosis. There has been a decrease of 9.8% in bone mineral density in the lumbar spine since the prior examination of 07/09/2021. There has been a decrease of 0.8% in bone mineral density in the right femur and a decrease of 6.8% in bone mineral density in the left femur. 2. FRAX analysis yields a 10-year probability of major osteoporotic fracture of 4.2% and a 10-year probability of hip fracture of 0.4%. Code 10039 Dictating Physician: DANIEL AMATO MD Electronically Signed by: DANIEL AMATO MD Dic Date/Time: 07/13/2333 Sign date/Time: 07/13/23934 Procedure Note Daniel Amato MD - 02/08/2024 [facility] Diagnostic Imaging Department [address] [place] [address] Patient: HERMILO MOSES/Age/Sex: 1965 - 57 - F Unit#: [id number] Location/Status: [facility] Mnemonic[facility] Ordering Physician: JODEE HERNANDEZ MD Fabi Dexa Axial Skeleton - 07/13/23 - 906 Report Status:Signed HISTORY: The patient is a [...] density of the femurs bilaterally is 0.832 gm/nr8omrbc is 83% of that of young normals [...] probability of hip fracture of 0.4%. Code 95915 Dictating Physician: DANIEL AMATO MD Electronically Signed by: DANIEL AMATO MD Dic Date/Time: 07/13/23932 Sign date/Time: 07/13/23934 Jodee Hernandez MD IMG BI PROCEDURES Final Re sult from Last 3 Months or Most Recently Relevant to Health Maintenance Insurance [employer] [id number] Care Teams Deicer Inspector Electric Relationship Specialty Start Date End Date Trisha Dumont MD PCP - General Internal Medicine 06/10/24
--- OUTSIDE RECORDS SUMMARY | 2025-05-10 18:45 | XMS_ITS | Encounter Summary ---
Author Organization [facility] Address [address] [place] [address] [place] [address] Phone Care Team Providers Care Realty Loan Specialist Name Role Phone Trisha Dumont MD Primary Care Provider [phone] Encounter Details Date Type Department Care Team (Late st Contact Info) Description 05/09/2025 Orders Only [facility] [address] [place] [address] Remington Brennan, DO [address] [place] [address] [email or web address] Other osteoporosis without current pathological fracture (Primary Dx) Social History Tobacco Use Types Packs/Day Years Used Date Smoking Tobacco: Never Smokeless Tobacco: Never Alcohol Use Standard Drinks/Week Comments Never 0 (1 standard drink = 0.6 oz pur e alcohol) Education Answer Date Recorded Are you interested in more education? Not on dionte e 09/08/2023 Are you concerned about learning? Not on file 09/08/2023 No 09/08/2023 No 09/08/2023 Digital Access Answer Date Recorded No 09/08/2023 No 09/08/2023 Reliable internet access at home? Not on file 09/08/2023 Device with a working camera? Not on file Comments Unknown Sex and Gender Information Value Date Recorded Sex Assigned at Not on file Legal Sex Female 4:29 PM EST Gender Identity Not on file Sexual Orientation Not on file documented as of this encounter Plan of Treatment Upcoming Encounters Date Type Department Care Team (Late st Contact Info) Description 05/11/2025 1:20 PM EST Office Visit [facility] [address] [place] [address] [place] [address] [email or web address] documented as of this encounter Procedures Procedure Name Priority Date/Time Associated Diagnosis Comments LAB ADD-ON Routine 05/09/2025 11:30 AM EST Other osteoporosis without current pathological fracture documented in this encounter Results * Lab Add-On (05/09/2025 11:30 AM EST) Specimen Date/Time 05/09/2025 5:11 PM [facility] Test Requested Comprehensive 025 5:11 PM [facility] Specimen Description 05/09/2025 5:11 PM [facility] Comments 05/09/2025 5:11 PM [facility] Was this request processed? See Comment 05/09/2025 5:11 PM [facility] Other (Other) 05/09/2025 11: 30 AM EST 05/09/2025 11:30 AM EST Remington Brennan DO LAB GENERAL ORDERABLES Final Res ult [facility] [address] [place] [address] documented in this encounter Visit Diagnoses Diagnosis Other osteoporosis without current pathological fracture- Primary documented in this encounter Care Teams Realty Loan Specialist Relationship Specialty Start Date End Date Trisha Dumont MD [address] [place] [address] PCP - General Internal Medicine 07/27/23 documented as of this encounter Additional Source Comments The information contained in this document represents components of the legal health record. It is not the complete legal health record.[facility]
--- OUTSIDE RECORDS SUMMARY | 2025-05-10 18:45 | XMS_ITS | Clinical Summary ---
Author Organization [facility] Address [address] [facility] [address] [place] [address] Phone Care Team Providers Care Capital Markets Specialist Name Role Phone Trisha Dumont MD Primary Care Provider [phone] Allergies Active Allergy Reactions Criticality Noted Date [...] of 1 - PCV) 016 Influenza Vaccine (#1) 2025 Insurance [employer] Care Teams Capital Markets Specialist Relationship Specialty Start Date End Date Trisha Dumont MD [facility] [address] [place] [address] [phone] [place] [address] PCP - General Internal Medicine 09/21/20
== END 2025-05-10 10:50 | disposition home or self-care (01) ==
LOC: HO.HMCC 09:59
PROVIDERS: PCP Internal Medicine; Visit Provider Internal Medicine
DX: Z00.00 Encounter for general adult medical examination without abnormal findings (principal); M81.0 Age-related osteoporosis without current pathological fracture; E03.9 Hypothyroidism, unspecified; E78.5 Hyperlipidemia, unspecified